=== PATIENT | female | born 1955 | race African-American/Black ===

== ENCOUNTER 2017-11-23 11:39 | Emergency (ER) | payer OTHER ==
[2017-11-23 12:22] LABS: ABS Basophils 0 10^3/ul (0-0.2); ABS Eosinophils 0.1 10^3/ul (0-0.6); ABS Lymphocytes 0.6 10^3/ul (1.0-4.8); ABS Monocytes 0.5 10^3/ul (0-0.8); ABS Neutrophils 2.1 10^3/ul (1.5-7.7); ABS Nucleated RBC 0 10^3/ul; Eosinophil % 2.2 % (0-6); Hematocrit 41 % (35-47); Hemoglobin 13.9 g/dl (12.0-16.0); Lymphocyte % 17.8 % (25-47); Mean Corpuscular HGB Conc 34 g/dl (31-36); Mean Corpuscular Hemoglobin 30 pg (27-31); Mean Corpuscular Volume 89 fL (80-97); Mean Platelet Volume 7.6 um3 (7.4-10.4); Nucleated Red Blood Cells % 0.1; Platelet Count 306 10^3/ul (150-450); Red Blood Count 4.61 10^6/ul (4.00-5.40); Red Cell Distribution Width 15 % (10.5-15); White Blood Count 3.3 10^3/ul (3.5-10.8)
[2017-11-23 12:46] LABS: EGFR Non-African American 87.7 (>60)
--- NOTE | 2017-11-23 13:25 | RAD ---
Indication: Shortness of breath. 2 views of the chest are reviewed and compared to previous exam dated November 14, 2017. Bilateral pleural effusion with bibasilar atelectasis is noted. Interstitial edema is progressive since previous exam. Left perihilar infiltrate is progressed. IMPRESSION: Increasing bilateral pleural effusions with interstitial edema suggestive of vascular congestion when compared to previous exam of November 14, 2017.
--- NOTE | 2017-11-23 14:55 | RAD ---
INDICATION: Difficulty breathing. Pancreatic carcinoma with lung metastasis. COMPARISON: November 23, 2017 chest radiograph and October 18, 2017 CT. TECHNIQUE: Multidetector CT images were obtained from the lung apices to the upper abdomen. Evaluation of the viscera is limited without IV contrast. REPORT: Moderately large dependent RIGHT and moderate dependent LEFT pleural effusions with partial loculation of the fluid bilaterally. Proportional atelectasis of both lungs. 3.1 x 2.7 cm LEFT suprahilar mass encases the bronchovascular structures to the LEFT upper lobe with significant interval worsening compared with the prior exam. Moderately severe emphysema. No enlarged mediastinal lymph nodes evident. Negative for cardiomegaly or pericardial effusion. Tip of LEFT chest port at level of RIGHT atrium. Limited images through the upper abdomen are unremarkable. No suspicious focal thoracic osseous lesions evident. IMPRESSION: #. Moderately large RIGHT and moderate LEFT partially loculated pleural effusions with interval increase on the RIGHT and decreased on the LEFT compared with the prior exam. Proportional atelectasis. #. 3.1 x 2.7 cm LEFT suprahilar mass encases the bronchovascular structures to the LEFT upper lobe with significant interval worsening compared with the prior exam is suspicious for a metastatic lesion given the clinical context.
[2017-11-23] MEDS ORDERED: oxyCODONE TAB* 5 MG TAB PO ONE (15:42)
[2017-11-23 16:05] LABS: INR 1.06 (0.77-1.02)
--- NOTE | 2017-11-23 17:21 | RAD ---
Indication: Status post right thoracentesis, right pleural effusion. Inspiration and expiration of the views of the chest are reviewed. There is a moderate-sized right pneumothorax noted. The right upper lobe and right middle lobe appears to have reexpanded. There is still persistent collapse of the right lower lobe. This may be due to central obstruction. IMPRESSION: Small to moderate right pneumothorax after thoracentesis with persistent collapse of the right.
[2017-11-23 18:27] VITALS: BP 103/78
--- NOTE | 2017-11-23 20:46 | ED ---
Pedro Daniels Angela, scribed for Omar Farrar MD on 11/23/17 at 1202 . Shortness of Breath - HPI Summary HPI Summary: This pt is a 61 y/o female presenting to [facility] via EMS for difficulty breathing and SOB. Pt reports she also has a productive cough with a great amount of sputum. She states this cough is typical and only has some pain with coughing spells. Pt denies fever, chest pain, abd pain. Pt does use oxygen at home. PMHx includes pancreatic CA (diagnosed in 2017) with metastases to the left lung. Her oncologist is Dr. Brown. Pt has had thoracentesis x3 from the left lung, her last one was 2 weeks ago performed by Dr. Andujar. She reports that her last 2 chemo sessions has caused her to build fluid in her lung and therefore has started a new treatment to avoid the fluid build up. Pt has come to the ED about 3 times in the past couple of months for SOB. - History of Current Complaint Time Seen by Provider: 11/23/17 11:46 Hx Obtained From: Patient Onset/Duration: Lasting Days, Still Present Timing: Constant Dyspnea At: Rest Aggrevating Factors: Nothing Alleviating Factors: Nothing Associated Signs & Symptoms: Cough (Productive) - Allergy/Home Medications Allergies/Adverse Reactions: Allergies Allergy/AdvReac Type Severity Reaction Status Date / Time No Known Allergies Allergy Verified 10/18/17 10:50 PMH/Surg Hx/FS Hx/Imm Hx Endocrine/Hematology History: Denies: Hx Diabetes, Hx Thyroid Disease Cardiovascular History: Reports: Hx Hypertension, Other Cardiovascular Problems/ Disorders - PRAVASTATIN Denies: Hx Pacemaker/ICD Respiratory History: Reports: Hx Lung Cancer - metastatic from pancreas , Hx Pleural Effusion, Hx Pulmonary Edema, Hx Pulmonary Embolism, Other Respiratory Problems/Disorders - HX OF THORACENTESIS 07/2017 Denies: Hx Asthma, Hx Chronic Obstructive Pulmonary Disease (COPD) GI History: Denies: Hx Ulcer History: Denies: Hx Dialysis, Hx Renal Disease Musculoskeletal History: Reports: Hx Arthritis - LOWER LUMBAR AND RIGHT KNEE, LEFT WRIST Sensory History: Denies: Hx Contacts or Glasses, Hx Legally Blind, Hx Deafness, Hx Hearing Aid Opthamlomology History: Denies: Hx Contacts or Glasses, Hx Legally Blind Neurological History: Reports: Other Neuro Impairments/Disorders - PAIN CLINIC INJECTIONS Psychiatric History: Denies: Hx Panic Disorder - Cancer History Cancer Type, Location and Year: pancreatic dx 06/2016, metastatic to lung Hx Chemotherapy: Yes - PORT ON THE LEFT Hx Radiation Therapy: No - Surgical History Surgery Procedure, Year, and Place: Left foot bunionectomy 2016 Hx Anesthesia Reactions: No Infectious Disease History: No Infectious Disease History: Denies: Hx Hepatitis, Hx Human Immunodeficiency Virus (HIV), History Other Infectious Disease, Traveled Outside the [place] in Last 30 Days - Family History Known Family History: Positive: Hypertension, Other - daughter - herniated disc - Social History Alcohol Use: None Hx Substance Use: No Substance Use Type: Reports: None Substance Use Comment - Amount & Last Used: last smoked today before "seizure" Hx Tobacco Use: No Smoking Status (MU): Former Smoker Type: Cigarettes Amount Used/How Often: 1 PACK PER WEEK Length of Time of Smoking/Using Tobacco: 44 years Have You Smoked in the Last Year: Yes Review of Systems Negative: Fever Eyes: Negative Negative: Chest Pain Positive: Shortness Of Breath, Cough Negative: Abdominal Pain Genitourinary: Negative Positive: no symptoms reported All Other Systems Reviewed And Are Negative: Yes Physical Exam - Summary Physical Exam Summary: Appearance: The patient is well-nourished in no acute distress and in no acute pain. Skin: The skin is warm and dry and skin color reflects adequate perfusion. HEENT: The head is normocephalic and atraumatic. The pupils are equal and reactive. The conjunctivae are clear and without drainage. Nares are patent and without drainage. Mouth reveals moist mucous membranes and the throat is without erythema and exudate. The external ears are intact. The ear canals are patent and without drainage. The tympanic membranes are intact. Neck: the neck is supple with full range of motion and non-tender. There are no carotid bruits. There is no neck vein distension. Respiratory: Chest is non-tender. Crackles at the left base. Decreased breath sounds on the right base, about a quarter all the way up. Cardiovascular: Heart is regular rate and rhythm. There is no murmur or rub auscultated. There is no peripheral edema and pulses are symmetrical and equal. Abdomen: The abdomen is soft and non-tender. There are normal bowel sounds heard in all four quadrants and there is no organomegaly palpated. Musculoskeletal: There is no back tenderness noted. Extremities are non-tender with full range of motion. There is good capillary refill. There is no peripheral edema or calf tenderness elicited. Neurological: Patient is alert and oriented to person, place and time. Psychiatric: The patient has an appropriate affect and does not exhibit any anxiety or depression. Triage Information Reviewed: Yes Vital Signs On Initial Exam: Initial Vitals Temp Pulse Resp BP Pulse Ox 97.1 F 91 20 143/88 100 11/23/17 11:45 11/23/17 11:45 11/23/17 11:45 11/23/17 11:45 11/23/17 11:45 Vital Signs Reviewed: Yes Diagnostics - Vital Signs Vital Signs Temp Pulse Resp BP Pulse Ox 11/23/17 11:45 97.1 F 91 20 143/88 100 - Laboratory Lab Results: Lab Results 11/23/17 11/23/17 11/23/17 Range/Units 12:06 12:06 12:06 WBC 3.3 L (3.5-10.8) 10^3/ul RBC 4.61 (4.00-5.40) 10^6/ul Hgb 13.9 (12.0-16.0) g/dl Hct 41 (35-47) % MCV 89 (80-97) fL MCH 30 (27-31) pg MCHC 34 (31-36) g/dl RDW 15 (10.5-15) % Plt Count 306 (150-450) 10^3/ul MPV 7.6 (7.4-10.4) um3 Neut % (Auto) 63.9 (38-83) % Lymph % (Auto) 17.8 L (25-47) % [place] % (Auto) 14.9 H (0-7) % Eos % (Auto) 2.2 (0-6) % Baso % (Auto) 1.2 (0-2) % Absolute Neuts (auto) 2.1 (1.5-7.7) 10^3/ul Absolute Lymphs (auto) 0.6 L (1.0-4.8) 10^3/ul Absolute Monos (auto) 0.5 (0-0.8) 10^3/ul Absolute Eos (auto) 0.1 (0-0.6) 10^3/ul Absolute Basos (auto) 0 (0-0.2) 10^3/ul Absolute Nucleated RBC 0 10^3/ul Nucleated RBC % 0.1 INR (Anticoag Therapy) (0.77-1.02) APTT (26.0-36.3) seconds Sodium 134 L (135-145) mmol/L Potassium 4.4 (3.5-5.0) mmol/L Chloride 101 (101-111) mmol/L Carbon Dioxide 27 (22-32) mmol/L Anion Gap 6 (2-11) mmol/L BUN 11 (6-24) mg/dL Creatinine 0.68 (0.51-0.95) mg/dL Est GFR ( Amer) 106.1 (>60) Est GFR (Non-Af Amer) 87.7 (>60) BUN/Creatinine Ratio 16.2 (8-20) Glucose 152 H (70-100) mg/dL Lactic Acid 1.6 (0.5-2.0) mmol/L Calcium 9.2 (8.6-10.3) mg/dL Total Bilirubin 0.40 (0.2-1.0) mg/dL AST 16 (13-39) U/L ALT 7 (7-52) U/L Alkaline Phosphatase 99 (34-104) U/L Troponin I 0.01 (<0.04) ng/mL B-Natriuretic Peptide ( - 100) pg/mL Total Protein 7.0 (6.4-8.9) g/dL Albumin 3.1 L (3.2-5.2) g/dL Globulin 3.9 (2-4) g/dL Albumin/Globulin Ratio 0.8 L (1-3) 11/23/17 11/23/17 Range/Units 12:06 12:06 WBC (3.5-10.8) 10^3/ul RBC (4.00-5.40) 10^6/ul Hgb (12.0-16.0) g/dl Hct (35-47) % MCV (80-97) fL MCH (27-31) pg MCHC (31-36) g/dl RDW (10.5-15) % Plt Count (150-450) 10^3/ul MPV (7.4-10.4) um3 Neut % (Auto) (38-83) % Lymph % (Auto) (25-47) % [place] % (Auto) (0-7) % Eos % (Auto) (0-6) % Baso % (Auto) (0-2) % Absolute Neuts (auto) (1.5-7.7) 10^3/ul Absolute Lymphs (auto) (1.0-4.8) 10^3/ul Absolute Monos (auto) (0-0.8) 10^3/ul Absolute Eos (auto) (0-0.6) 10^3/ul Absolute Basos (auto) (0-0.2) 10^3/ul Absolute Nucleated RBC 10^3/ul Nucleated RBC % INR (Anticoag Therapy) 1.06 H (0.77-1.02) APTT 28.1 (26.0-36.3) seconds Sodium (135-145) mmol/L Potassium (3.5-5.0) mmol/L Chloride (101-111) mmol/L Carbon Dioxide (22-32) mmol/L Anion Gap (2-11) mmol/L BUN (6-24) mg/dL Creatinine (0.51-0.95) mg/dL Est GFR ( Amer) (>60) Est GFR (Non-Af Amer) (>60) BUN/Creatinine Ratio (8-20) Glucose (70-100) mg/dL Lactic Acid (0.5-2.0) mmol/L Calcium (8.6-10.3) mg/dL Total Bilirubin (0.2-1.0) mg/dL AST (13-39) U/L ALT (7-52) U/L Alkaline Phosphatase (34-104) U/L Troponin I (<0.04) ng/mL B-Natriuretic Peptide 40 ( - 100) pg/mL Total Protein (6.4-8.9) g/dL Albumin (3.2-5.2) g/dL Globulin (2-4) g/dL Albumin/Globulin Ratio (1-3) Result Diagrams: 11/23/17 12:06 11/23/17 12:06 Lab Statement: Any lab studies that have been ordered have been reviewed, and results considered in the medical decision making process. - Radiology Chest XR Xray Interpretation: Positive (See Comments) - IMPRESSION: Increasing bilateral pleural effusions with interstitial edema suggestive of vascular congestion when compared to previous exam of November 14, 2017. Dr. Farrar has reviewed this radiology report. Radiology Interpretation Completed By: Radiologist Chest XR s/p right thoracentesis Xray Interpretation: Positive (See Comments) - IMPRESSION: Small to moderate right pneumothorax after thoracentesis with persistent collapse of the right. Dr. Farrar has reviewed this radiology report. Radiology Interpretation Completed By: Radiologist - CT Chest CT CT Interpretation: Positive (See Comments) - IMPRESSION: 1. Moderately large RIGHT and moderate LEFT partially loculated pleural effusions with interval increase on the RIGHT and decreased on the LEFT compared with the prior exam. Proportional atelectasis. 2. 3.1 x 2.7 cm LEFT suprahilar mass encases the bronchovascular structures to the LEFT upper lobe with significant interval worsening compared with the prior exam is suspicious for a metastatic lesion given the clinical contect. Dr. Farrar has reviewed this radiology report. CT Interpretation Completed By: Radiologist - EKG 12:10 Cardiac Rate: NL - at 87 bpm EKG Rhythm: Sinus Rhythm Course/Dx - Course Course Of Treatment: Ms. Moses presented with a complaint of gradually increasing shortness of breath over the last week or 2. She has had to have thoracentesis for left-sided pleural effusions 3 times in the past couple of months. Her pulse ox was running low on her normal 2 L of oxygen when EMS picked her up and they increased her to 4 with good results. She was nontoxic in appearance with normal vitals on arrival. She had crackles at her left base and decreased breath sounds about a quarter to a third up on the right. Chest x -ray confirmed that she had a right pleural effusion as well as some consolidation on the left therefore a CT was performed. The CT confirmed a left sided mass as well as right sided consolidated effusion. She had a thoracentesis performed by the radiology department with good subjective improvement. She was able to be decreased down to 2 L of oxygen again. She is discharged to follow up with Dr. Brown. - Diagnoses Provider Diagnoses: Pleural effusion, Pneumothorax - Physician Notifications Discussed Care of Patient With: Celso Hernandez Time Discussed With Above Provider: 14:10 Instructed by Provider To: Other - I discussed pt care with Dr. Hernandez, oncologist. Discharge - Sign-Out/Discharge Documenting (check all that apply): Discharge/Admit/Transfer - Discharge - Discharge Plan Condition: Stable Disposition: HOME Patient Education Materials: Spontaneous Pneumothorax (ED), Pleural Effusion ( ED) Referrals: Jesse Ndiaye MD [Primary Care Provider] - Additional Instructions: Please follow up with your primary care provider in 2-3 days. RETURN TO THE ED FOR ANY WORSENING SYMPTOMS. - Billing Disposition and Condition Condition: STABLE Disposition: Home The documentation as recorded by the Pedro perez Angela accurately reflects the service I personally performed and the decisions made by me, Omar Farrar MD.
--- NOTE | 2017-11-24 10:04 | RAD ---
Indication: Right pleural effusion. Real-time sonography of the right chest was performed. Large right pleural effusion is noted. Using usual aseptic technique and lidocaine as local anesthetic an 8-Vincentian catheter was placed within the right pleural space. Approximately 1650 mL of fluid was aspirated. A post procedure chest x-ray demonstrates right pneumothorax. This demonstrates nonexpansion of the right lower lobe and the possibility of a trapped right lower lobe should BE considered. IMPRESSION: Aspiration of 1650 mL of fluid from the right pleural space. Post procedure chest x-ray demonstrates moderate-sized right pneumothorax which is felt to represent trapped lung the right lower lobe failed to reexpand. Dr. Farrar was notified of the pneumothorax.
== END 2017-11-23 18:27 | disposition home or self-care (01) ==
LOC: ED 11:39
DX: J90 Pleural effusion, not elsewhere classified (principal); J93.9 Pneumothorax, unspecified; C25.9 Malignant neoplasm of pancreas, unspecified; C78.00 Secondary malignant neoplasm of unspecified lung; Z87.891 Personal history of nicotine dependence; I10 Essential (primary) hypertension; Z86.711 Personal history of pulmonary embolism
CPT/HCPCS: 32555; 36415; 71046; 71250; 80053; 83605; 83880; 84484; 85025; 85610; 85730; 93005; 99283; A9270-GY

== ENCOUNTER → 2017-12-03 09:31 | Day surgery (SDC) | payer OTHER ==
--- NOTE | 2017-12-03 10:59 | RAD ---
HISTORY: pleurX placed COMPARISONS: November 29, 2017 VIEWS: 1: frontal portable view of the chest at 10:37 AM FINDINGS: LINES AND TUBES: Left-sided chest port is noted from a subclavian approach with the tip overlying the superior vena cava. A ureteral catheter is noted on the right. CARDIOMEDIASTINAL SILHOUETTE: The cardiomediastinal silhouette is stable. PLEURA: There is a right-sided pleural catheter. There is a small right-sided hydropneumothorax, slightly decreased from November 29, 2012 examination. There is a small left pleural effusion.. LUNG PARENCHYMA: There is stable perihilar opacification correspond to masses on previous studies. There is persistent patchy alveolar opacification of the left lung base. ABDOMEN: The upper abdomen is clear. There is no subphrenic gas. BONES AND SOFT TISSUES: No bone or soft tissue abnormalities are noted. IMPRESSION: 1. LINES AND TUBES ABOVE. 2. SMALL RIGHT-SIDED HYDROPNEUMOTHORAX, SLIGHTLY DECREASED FROM THE PREVIOUS EXAMINATION. 3. SMALL LEFT PLEURAL EFFUSION. 4. PERSISTENT AIRSPACE DISEASE OF THE LEFT LUNG BASE
--- NOTE | 2017-12-04 06:27 | OP ---
CC: Dr. Brown * DATE OF OPERATION: 12/03/17 - SDS DATE OF : 53 SURGEON: Perez Madden MD FINANCIAL OPERATIONS CLERK: None. ANESTHESIOLOGIST: None. PRE-OP DIAGNOSIS: Malignant pleural effusion. POST-OP DIAGNOSIS: Malignant pleural effusion. OPERATIVE PROCEDURE: Placement of right PleurX catheter. DESCRIPTION OF PROCEDURE: The patient was in the local outpatient department. A little roll was placed under the right side to tilt her upward and then the right chest was prepped with antiseptic, draped in a sterile fashion. Local infiltrative anesthesia was administered and the posterior axillary line, approximately the 8th interspace was accessed with local anesthetic, and a skinny needle was used to identify clear fluid. An access needle and then a guidewire was placed. The catheter was measured out on the exit site as planned for about 15 cm anterior and inferior to this area and local anesthetic was administered along the tract and incision was created and the catheter was tunneled through this tract and the Peel- Away introducer was placed over the guidewire and the catheter was passed through the Peel-Way introducer, delivered into the chest and the catheter was then appropriately positioned and sutured at the exit site using 3-0 Vicryl, and the skin incision posteriorly was also closed with 3-0 Vicryl. A gauze bandage was placed over the posterior incision and the sterile Tegaderm dressing was placed over the catheter after drainage about 1200 mL of fluid. She tolerated this with the usual cough and is discharged with instruction. She is going to follow up with Dr. Brown's office for teaching of the PleurX catheter , and I will be happy to see her back in the office should the need arise. [id number]/[facility] #: [id number] [facility]
== END | disposition home or self-care (01) ==
LOC: OR 09:31
PROVIDERS: ATTEND Surgery
DX: J91.0 Malignant pleural effusion (principal); C25.0 Malignant neoplasm of head of pancreas; R53.83 Other fatigue; R06.02 Shortness of breath; R63.4 Abnormal weight loss; Z72.0 Tobacco use; I10 Essential (primary) hypertension; R73.01 Impaired fasting glucose; E78.2 Mixed hyperlipidemia
CPT/HCPCS: 32551; 71045

== ENCOUNTER 2018-01-10 18:03 | Observation (INO) | payer OTHER ==
--- OUTSIDE RECORDS SUMMARY | 2018-01-10 18:41 | XMS REPORT ---
:1955 External Reference #:[id number] Author Organization [email or web address] Address [address] [facility] [place] [address] [place] [address] Phone [phone] Care Team Providers Name Role Phone Jesse Ndiaye MD Care Team Information Microstrategy Reports Developer Unavailable Jesse Ndiaye MD Primary Care Physician Unavailable Payers Type Date Identification Numbers Payment Provider Subscriber Commercial Effective: Policy Number: [id number] [employer] May Velázquez 2005 Medicaid Expires: 2008 PayID: [id number] [address] [address] [place] [address] Medigap Part B Effective: Policy Number: [employer] May Velázquez 2008 [id number] Expires: 2011 Group Number: [id number] [address] PayID: [id number] MONIQUE Negro [id number] Commercial Effective: 2011 Policy Number: [id number] [employer] May Velázquez Group Number: [id number] [address] PayID: [id number] MONIQUE Negro [id number] Problems Date Description Provider Status Onset: 09/06/2016 Primary malignant neoplasm of Jesse Ndiaye, Active pancreas Federica,FACP Onset: 06/04/2007 Disorder of lumbar disc Gaby Hardwick M.D.,FACP Onset: 06/04/2007 Neuralgia Neuritis & Radiculitis Jesse Ndiaye, Active Unspec Federica,FACP Onset: 02/25/2008 Mixed hyperlipidemia Gaby Hardwick M.D.,FACP Onset: 04/01/2010 Female climacteric state Gaby Hardwick M.D.,FACP Onset: 12/04/2016 Ex-smoker Jesse Ndiaye Active Federica,FACP Onset: 11/04/2017 Pulmonary embolism Becky Erickson DO Active Onset: 11/04/2017 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 Onset: 11/04/2017 Pleural effusion, not elsewhere Becky Erickson DO Active classified Onset: 02/25/2008 Tobacco user Jesse Ndiaye Inactive Federica,FACP Inactive: 12/04/2016 Onset: 01/01/2015 Body mass index 30+ - obesity Jesse Ndiaye M.D.,FACP Resolved Resolved: 08/11/2016 Onset: 02/25/2008 Impaired fasting glycaemia Jesse Ndiaye M.D.,FACP Resolved Resolved: 02/19/2017 Onset: 01/01/2015 Benign essential hypertension Jesse Ndiaye M.D.,FACP Resolved Resolved: 02/19/2017 Family History Date Family Member(s) Problem(s) Comments General Breast Cancer General Lung Cancer Father due to Pneumonia () Father Diabetes, Non Insulin Dependent Mother Diabetes, Non Insulin Dependent Mother due to Emphysema () Siblings 11 : (age 3 First Brother due to Accidental Years) : (1995) Second Brother due to AIDS Third Brother Alive And Well Fourth Brother Alive And Well First Sister Diabetes, Non Insulin Dependent First Sister due to Cancer, () Breast Second Sister Diabetes, Non Insulin Dependent Second Sister Obesity w/ lap-band surgery Third Sister Diabetes, Non Insulin Dependent Social History Type Date Description Comments Marital Status in 1989 Lives With 02/19/2017 Alone Occupation 02/19/2017 Currently Working at [employer], [employer], 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 Cigarette Use Former Cigarette Smoker ETOH Use 02/19/2017 Denies alcohol use Recreational Drug Use Denies Drug Use Smoking Patient is a former smoker Smoking 06/30/2016 quit 12/2014 General Hx Text 3 children Allergies, Adverse Reactions, Alerts Date Description Reaction Status Severity Comments 05/23/2007 NKDA active Medications Medication Date Status Form Strength Qnty SIG Indications Ordering Provider Oxycodone HCL Active Tablets 10mg 45tab 1 by mouth Unknown / s every 4 hours as needed pain, MDD 6 Maalox Active Suspension 400-400-4 30 Unknown Advanced 0mg/5ML milliliters Maximum every 6 hours Strength as needed indigestion, use with lidocaine viscous Lovenox Active Solution 100mg/ml 1 Unknown subcutaneousl y every day Levaquin 11/23 Hx Tablets 750mg 12tab 1 tab by Other s mouth daily Ordering - for 12 days Provider 12/04 Tessalon 11/23 Hx Capsules 100mg 60cap 2 tab by Other s mouth three Ordering - times a day Provider 02/19 as needed /2016 cough Miralax 08/11 Hx Powder [id number] 510un 17 gm every its day mixed w/ Carmen Ndiaye, 8 oz Jania.Carmen,FACP water/juice Morphine 07/26 Hx Tablets ER 15mg 60tab 1 by mouth q Gregg Sulfate ER /2016 s 12 hrs Krystian Brown M.D. 12/04 Colace 06/30 Hx Capsules 100mg 60cap 1 by mouth s twice a day Carmen Ndiaye M.D.,FACP Oxycodone HCL 06/30 Hx Tablets 10mg 60tab 1/2-1 by s mouth every 6 D. Zelda, estephanie do M.D.,FACP needed pain Movantik 06/30 Hx Tablets 25mg 30tab 1 by mouth s every day Carmen Ndiaye, - (not taking) Federica,FACP 08/11 Medrol 06/14 Hx Tablets 4mg 1pak medrol dosepack as Carmen Ndiaye, - directed Federica,FACP 06/20 Metaxalone 06/14 Hx Tablets 800mg 30tab 1/2 -1 by s mouth three Carmen Ndiaye, times a day Federica,FACP as needed No Active 06/07 Hx Unknown Medications /2016 - 06/07 Lyrica 06/07 Hx Capsules 75mg 60cap 1 by mouth 3X [facility] s a day for 1 D. Zelda, - wk then 2 M.D.,[facility] 06/30 tabs twice a day Hydrocodone-Ac 06/07 Hx Tablets 5-325mg 30tab 1 by mouth Jesse etamin s every 4-6 D. Zelad, - hours prn. M.DKvng,[facility] 06/14 Azithromycin 03/28 Hx Tablets 250mg 6tabs two tabs day one, one Ordering - daily till Provider 04/02 Voltaren 03/19 Hx Gel 1% 100g apply 2 gms M25.532 Jesse to affected Carmen Ndiaye, - area twice a M.DKvng,[facility] 06/07 day as needed (Work Comp) left wrist Lisinopril 01/01 Hx Tablets 10mg 90tab 1 by mouth I10 Jesse s every day Krystian Sutherland M.D.,[facility] 06/07 Bupropion HCL 10/01 Hx Tablets ER 150mg 21tab 1 tab qd for F17.210 Thierno Paredes ER (SR) /2014 12HR s 3 wks, then Carmen Ndiaye, - stop M.Carmen,[facility] 07/05 Pravastatin 10/01 Hx Tablets 20mg 30tab 1 tablet by E78.2 Jesse Sodium s mouth once Carmen Ndiaye, - daily at M.D.,[facility] 06/07 bedtime No Active 04/01 Hx Unknown Medications /2013 - 10/01 Chantix 06/10 Hx Tablets 1mg 60tab 1 po bid 305.1 Jesse s Krystian Sutherland M.D.,[facility] 04/01 Biaxin 02/24 Hx Tablets 500mg 14tab 1 bid po for 466.0 Jesse s 7 days Krystian Sutherland M.D.,[facility] 06/10 Proventil HFA 02/24 Hx Aerosol 108mcg/Ac 1Mon 2 puff(S) 466.0 Jesse t inhalation 1 Carmen Ndiaye, - qid prn M.Carmen,[facility] 04/01 Chantix 02/24 Hx Misc Starting 1Mon as directed 305.1 Krystian Dunaway M.D.,[facility] 06/10 Lyrica 06/04 Hx Capsules 75mg 60cap 1 po bid 729.2 Krystian Tellez M.D.,[facility] 02/24 Ibuprofen 05/23 Hx Tablets 600mg 90tab 1 PO tid prn Jesse Krystian Tellez M.D.,[facility] 02/24 Percocet 05/23 Hx Tablets 7.5-325M 80tab 1-2 po qid 720.2 Jesse Krystian Gomez M.D.,[facility] 02/24 Meloxicam Hx Tablets 7.5mg take 1 tab by Unknown /0000 mouth bid - 06/07 Senna Hx Tablets 8.6mg take 1-2 Unknown /0000 tablets by mouth at bedtime for constipation Gemzar Hx Solution 200mg IV weekly Unknown /0000 Rec - 12/04 Abraxane 00 Hx Suspension 100mg IV weekly Unknown /0000 Rec Gemcitabine 00 Hx Solution 1GM/26.3M Unknown HCL /0000 L Acetaminophen Hx Tablets ER 650mg 1 tab by Unknown ER /0000 mouth q4 hours as needed pain Temazepam 00 Hx Capsules 15mg 1 tablet at Unknown /0000 bedtime mdd 1 Immunizations CPT Code Status Date Vaccine Lot # [id number] Given 04/01/2010 Influenza Virus 3Yrs & Over Vital Signs Date Vital Result Comment 12/28/2017 Heart Rate 80 /min Respiratory Rate 18 /min Body Temperature 98.0 F 11/30/2017 Height 66 inches 5'6" Weight 130.00 lb Heart Rate 80 /min BP Systolic 130 mmHg BP Diastolic 80 mmHg Respiratory Rate 22 /min Body Temperature 97.8 F BMI (Body Mass Index) 21.0 kg/m2 06/05/2017 Height 66 inches 5'6" Weight 154.00 lb Heart Rate 72 /min BP Systolic 160 mmHg BP Diastolic 88 mmHg Respiratory Rate 18 /min Body Temperature 97.8 F BMI (Body Mass Index) 24.9 kg/m2 02/19/2017 Height 66 inches 5'6" Weight 147.38 lb Heart Rate 78 /min BP Systolic Sitting 130 mmHg BP Diastolic Sitting 72 mmHg Body Temperature 97.8 F O2 % BldC Oximetry 98 % BMI (Body Mass Index) 23.8 kg/m2 12/04/2016 Weight 156.12 lb Heart Rate 52 /min BP Systolic Sitting 140 mmHg BP Diastolic Sitting 64 mmHg Body Temperature 96.4 F O2 % BldC Oximetry 98 % 08/11/2016 Weight 155.50 lb Heart Rate 93 /min BP Systolic Sitting 131 mmHg BP Diastolic Sitting 75 mmHg Body Temperature 97.3 F 08/07/2016 Height 65 inches 5'5" Weight 150.00 lb Heart Rate 54 /min BP Systolic 144 mmHg BP Diastolic 82 mmHg Respiratory Rate 16 /min Body Temperature 97.7 F BMI (Body Mass Index) 25.0 kg/m2 07/11/2016 Weight 169.00 lb Heart Rate 66 /min BP Systolic Sitting 122 mmHg BP Diastolic Sitting 70 mmHg Body Temperature 97.8 F O2 % BldC Oximetry 99 % 06/30/2016 Weight 173.25 lb Heart Rate 74 /min BP Systolic Sitting 152 mmHg BP Diastolic Sitting 74 mmHg Body Temperature 97.3 F O2 % BldC Oximetry 98 % 06/14/2016 Height 63.75 inches 5'3.75" Weight 179.50 lb Heart Rate 68 /min BP Systolic Sitting 150 mmHg BP Diastolic Sitting 72 mmHg O2 % BldC Oximetry 97 % BMI (Body Mass Index) 31.0 kg/m2 06/07/2016 Weight 175.38 lb Heart Rate 82 /min BP Systolic Sitting 140 mmHg BP Diastolic Sitting 82 mmHg Body Temperature 96.8 F O2 % BldC Oximetry 98 % 10/13/2015 Height 63.75 inches 5'3.75" Weight 203.00 lb Heart Rate 60 /min BP Systolic Sitting 156 mmHg BP Diastolic Sitting 80 mmHg Body Temperature 97.1 F O2 % BldC Oximetry 97 % BMI (Body Mass Index) 35.1 kg/m2 06/14/2015 Weight 203.00 lb Heart Rate 70 /min BP Systolic Sitting 154 mmHg BP Diastolic Sitting 82 mmHg Body Temperature 97.5 F O2 % BldC Oximetry 98 % 03/19/2015 Weight 208.00 lb Heart Rate 61 /min BP Systolic Sitting 126 mmHg BP Diastolic Sitting 64 mmHg Body Temperature 97.2 F O2 % BldC Oximetry 98 % 01/01/2015 Weight 204.00 lb Heart Rate 60 /min BP Systolic Sitting 148 mmHg BP Diastolic Sitting 82 mmHg Body Temperature 98.2 F 10/01/2014 Height 65.75 inches 5'5.75" Weight 206.25 lb Heart Rate 77 /min BP Systolic Sitting 144 mmHg BP Diastolic Sitting 80 mmHg Body Temperature 97.6 F O2 % BldC Oximetry 97 % BMI (Body Mass Index) 33.5 kg/m2 04/01/2014 Height 65.75 inches 5'5.75" Weight 212.50 lb Heart Rate 57 /min BP Systolic Sitting 135 mmHg BP Diastolic Sitting 80 mmHg Body Temperature 97.5 F BMI (Body Mass Index) 34.6 kg/m2 04/01/2010 Height 66 inches 5'6" Weight 223.00 lb Heart Rate 64 /min BP Systolic Sitting 146 mmHg BP Diastolic Sitting 72 mmHg BMI (Body Mass Index) 36.0 kg/m2 06/10/2008 Height 66 inches 5'6" Weight 226.00 lb Heart Rate 64 /min BP Systolic Sitting 138 mmHg BP Diastolic Sitting 76 mmHg BMI (Body Mass Index) 36.5 kg/m2 02/25/2008 Height 66 inches 5'6" Weight 223.00 lb Heart Rate 60 /min BP Systolic Sitting 130 mmHg BP Diastolic Sitting 70 mmHg BMI (Body Mass Index) 36.0 kg/m2 06/04/2007 Height 67 inches 5'7" Weight 230.00 lb Heart Rate 78 /min BP Systolic Sitting 160 mmHg BP Diastolic Sitting 89 mmHg BMI (Body Mass Index) 36.0 kg/m2 05/23/2007 Height 67 inches 5'7" Weight 230.00 lb Heart Rate 78 /min BP Systolic Sitting 150 mmHg BP Diastolic Sitting 80 mmHg BMI (Body Mass Index) 36.0 kg/m2 Results Test Date Test Result H/L Range Note Laboratory test finding 12/13/2017 Heparin Anti Factor <0.10 IU/mL 1 Xa Laboratory test finding 11/23/2017 Troponin-I (TnI) 0.01 ng/mL <0.04 Comp Metabolic Panel 11/23/2017 Sodium 134 mmol/L Low 135-145 Potassium 4.4 mmol/L 3.5-5.0 Chloride 101 mmol/L 101-111 Co2 Carbon Dioxide 27 mmol/L 22-32 Anion Gap 6 mmol/L 2-11 Glucose 152 mg/dL High 70-100 Blood Urea Nitrogen 11 mg/dL 6-24 Creatinine 0.68 mg/dL 0.51-0.95 BUN/Creatinine Ratio 16.2 8-20 Calcium 9.2 mg/dL 8.6-10.3 Total Protein 7.0 g/dL 6.4-8.9 Albumin 3.1 g/dL Low 3.2-5.2 Globulin 3.9 g/dL 2-4 Albumin/Globulin Ratio 0.8 Low 1-3 Total Bilirubin 0.40 mg/dL 0.2-1.0 Alkaline Phosphatase 99 U/L 34-104 Alt 7 U/L 7-52 Ast 16 U/L 13-39 Egfr Non- 87.7 >60 Egfr 106.1 >60 2 CBC Auto Diff 11/23/2017 White Blood Count 3.3 10^3/uL Low 3.5-10.8 Red Blood Count 4.61 10^6/uL 4.00-5.40 Hemoglobin 13.9 g/dL 12.0-16.0 Hematocrit 41 % 35-47 Mean Corpuscular Volume 89 fL 80-97 Mean Corpuscular Hemoglobin 30 pg 27-31 Mean Corpuscular HGB Conc 34 g/dL 31-36 Red Cell Distribution Width 15 % 10.5-15 Platelet Count 306 10^3/uL 150-450 Mean Platelet Volume 7.6 um3 7.4-10.4 Abs Neutrophils 2.1 10^3/uL 1.5-7.7 Abs Lymphocytes 0.6 10^3/uL Low 1.0-4.8 Abs Monocytes 0.5 10^3/uL 0-0.8 Abs Eosinophils 0.1 10^3/uL 0-0.6 Abs Basophils 0 10^3/uL 0-0.2 Abs Nucleated RBC 0 10^3/uL Granulocyte % 63.9 % 38-83 Lymphocyte % 17.8 % Low 25-47 Monocyte % 14.9 % High 0-7 Eosinophil % 2.2 % 0-6 Basophil % 1.2 % 0-2 Nucleated Red Blood Cells % 0.1 Laboratory test finding 11/23/2017 Lactic Acid 1.6 mmol/L 0.5-2.0 3 B-Type Natriuretic Peptide BNP 40 pg/mL 4 Inr/Protime 11/23/2017 Inr 1.06 High 0.77-1.02 Laboratory test 11/23/2017 Partial Thrombo Time 28.1 seconds 26.0-36.3 finding PTT Laboratory test 11/04/2017 B-Type Natriuretic 34 pg/mL 5 finding Peptide BNP Blood Culture SEE RESULT BELOW 6 CKMB 11/04/2017 CKMB ng/mL 3.7 ng/mL 0.6-6.3 Laboratory test finding 11/04/2017 Creatine Kinase(CK) 41 U/L 10-223 C Reactive Protein 17.88 mg/L High < 5.00 7 Troponin-I (TnI) 0.01 ng/mL <0.04 Comp Metabolic Panel 11/04/2017 Sodium 135 mmol/L Low 139-145 Potassium 3.8 mmol/L 3.5-5.0 Chloride 100 mmol/L Low 101-111 Co2 Carbon Dioxide 26 mmol/L 22-32 Anion Gap 9 mmol/L 2-11 Glucose 127 mg/dL High 70-100 Blood Urea Nitrogen 12 mg/dL 6-24 Creatinine 0.78 mg/dL 0.51-0.95 BUN/Creatinine Ratio 15.4 8-20 Calcium 8.9 mg/dL 8.6-10.3 Total Protein 7.1 g/dL 6.4-8.9 Albumin 3.3 g/dL 3.2-5.2 Globulin 3.8 g/dL 2-4 Albumin/Globulin Ratio 0.9 Low 1-3 Total Bilirubin 0.50 mg/dL 0.2-1.0 Alkaline Phosphatase 89 U/L 34-104 Alt 7 U/L 7-52 Ast 16 U/L 13-39 Egfr Non- 74.8 >60 Egfr 96.2 >60 8 Laboratory test finding 11/04/2017 Partial Thrombo Time 40.8 seconds High 26.0-36.3 PTT Lactic Acid 2.2 mmol/L High 0.5-2.0 9 Inr/Protime 11/04/2017 Inr 3.46 High 0.77-1.02 CBC Auto Diff 11/04/2017 White Blood Count 5.0 10^3/uL 3.5-10.8 Red Blood Count 4.91 10^6/uL 4.0-5.4 Hemoglobin 15.3 g/dL 12.0-16.0 Hematocrit 45 % 35-47 Mean Corpuscular Volume 92 fL 80-97 Mean Corpuscular Hemoglobin 31 pg 27-31 Mean Corpuscular HGB Conc 34 g/dL 31-36 Red Cell Distribution Width 15 % 10.5-15 Platelet Count 291 10^3/uL 150-450 Mean Platelet Volume 8.0 um3 7.4-10.4 Abs Neutrophils 3.5 10^3/uL 1.5-7.7 Abs Lymphocytes 1.0 10^3/uL 1.0-4.8 Abs Monocytes 0.3 10^3/uL 0-0.8 Abs Eosinophils 0.2 10^3/uL 0-0.6 Abs Basophils 0.1 10^3/uL 0-0.2 Abs Nucleated RBC 0 10^3/uL Granulocyte % 70.3 % 38-83 Lymphocyte % 19.4 % Low 25-47 Monocyte % 5.8 % 0-7 Eosinophil % 3.4 % 0-6 Basophil % 1.1 % 0-2 Nucleated Red Blood Cells % 0.2 Inr/Protime 10/30/2017 Inr 2.04 High 0.77-1.02 Laboratory test finding 10/23/2017 CA 19-9 50426 U/mL <35 10 Comp Metabolic Panel 10/23/2017 Sodium 137 mmol/L Low 139-145 Potassium 4.1 mmol/L 3.5-5.0 Chloride 102 mmol/L 101-111 Co2 Carbon Dioxide 26 mmol/L 22-32 Anion Gap 9 mmol/L 2-11 Glucose 129 mg/dL High 70-100 Blood Urea Nitrogen 9 mg/dL 6-24 Creatinine 0.76 mg/dL 0.51-0.95 BUN/Creatinine Ratio 11.8 8-20 Calcium 9.7 mg/dL 8.6-10.3 Total Protein 8.0 g/dL 6.4-8.9 Albumin 3.8 g/dL 3.2-5.2 Globulin 4.2 g/dL High 2-4 Albumin/Globulin Ratio 0.9 Low 1-3 Total Bilirubin 0.70 mg/dL 0.2-1.0 Alkaline Phosphatase 105 U/L High 34-104 Alt 6 U/L Low 7-52 Ast 16 U/L 13-39 Egfr Non- 77.1 >60 Egfr 99.2 >60 11 Inr/Protime 10/23/2017 Inr 1.10 High 0.77-1.02 CBC Auto Diff 10/23/2017 White Blood Count 4.9 10^3/uL 3.5-10.8 Red Blood Count 5.18 10^6/uL 4.0-5.4 Hemoglobin 15.9 g/dL 12.0-16.0 Hematocrit 48 % High 35-47 Mean Corpuscular Volume 92 fL 80-97 Mean Corpuscular Hemoglobin 31 pg 27-31 Mean Corpuscular HGB Conc 33 g/dL 31-36 Red Cell Distribution Width 16 % High 10.5-15 Platelet Count 274 10^3/uL 150-450 Mean Platelet Volume 7.6 um3 7.4-10.4 Abs Neutrophils 3.5 10^3/uL 1.5-7.7 Abs Lymphocytes 0.8 10^3/uL Low 1.0-4.8 Abs Monocytes 0.4 10^3/uL 0-0.8 Abs Eosinophils 0.1 10^3/uL 0-0.6 Abs Basophils 0.1 10^3/uL 0-0.2 Abs Nucleated RBC 0 10^3/uL Granulocyte % 72.0 % 38-83 Lymphocyte % 17.1 % Low 25-47 Monocyte % 8.4 % High 0-7 Eosinophil % 1.3 % 0-6 Basophil % 1.2 % 0-2 Nucleated Red Blood Cells % 0.1 Inr/Protime 10/19/2017 Inr 2.02 High 0.77-1.02 CBC Auto Diff 08/27/2017 White Blood Count 3.2 10^3/uL Low 3.5-10.8 Red Blood Count 4.08 10^6/uL 4.0-5.4 Hemoglobin 12.7 g/dL 12.0-16.0 Hematocrit 38 % 35-47 Mean Corpuscular Volume 93 fL 80-97 Mean Corpuscular Hemoglobin 31 pg 27-31 Mean Corpuscular HGB Conc 33 g/dL 31-36 Red Cell Distribution Width 18 % High 10.5-15 Platelet Count 244 10^3/uL 150-450 Mean Platelet Volume 8.0 um3 7.4-10.4 Abs Neutrophils 1.3 10^3/uL Low 1.5-7.7 Abs Lymphocytes 1.2 10^3/uL 1.0-4.8 Abs Monocytes 0.4 10^3/uL 0-0.8 Abs Eosinophils 0.2 10^3/uL 0-0.6 Abs Basophils 0 10^3/uL 0-0.2 Abs Nucleated RBC 0 10^3/uL Granulocyte % 42.0 % 38-83 Lymphocyte % 38.5 % 25-47 Monocyte % 13.0 % High 0-7 Eosinophil % 5.0 % 0-6 Basophil % 1.5 % 0-2 Nucleated Red Blood Cells % 0.1 Comp Metabolic Panel 08/27/2017 Sodium 137 mmol/L Low 139-145 Potassium 3.9 mmol/L 3.5-5.0 Chloride 107 mmol/L 101-111 Co2 Carbon Dioxide 25 mmol/L 22-32 Anion Gap 5 mmol/L 2-11 Glucose 103 mg/dL High 70-100 Blood Urea Nitrogen 5 mg/dL Low 6-24 Creatinine 0.72 mg/dL 0.51-0.95 BUN/Creatinine Ratio 6.9 Low 8-20 Calcium 9.0 mg/dL 8.6-10.3 Total Protein 6.9 g/dL 6.4-8.9 Albumin 3.5 g/dL 3.2-5.2 Globulin 3.4 g/dL 2-4 Albumin/Globulin Ratio 1.0 1-3 Total Bilirubin 0.40 mg/dL 0.2-1.0 Alkaline Phosphatase 85 U/L 34-104 Alt 6 U/L Low 7-52 Ast 15 U/L 13-39 Egfr Non- 82.1 >60 Egfr 105.6 >60 12 Laboratory test finding 08/27/2017 CA 19-9 1378 U/mL <35 13 CBC Auto Diff 07/18/2017 White Blood Count 2.8 10^3/uL Low 3.5-10.8 Red Blood Count 3.69 10^6/uL Low 4.0-5.4 Hemoglobin 11.8 g/dL Low 12.0-16.0 Hematocrit 35 % 35-47 Mean Corpuscular Volume 94 fL 80-97 Mean Corpuscular Hemoglobin 32 pg High 27-31 Mean Corpuscular HGB Conc 34 g/dL 31-36 Red Cell Distribution Width 16 % High 10.5-15 Platelet Count 256 10^3/uL 150-450 Mean Platelet Volume 9 um3 7.4-10.4 Abs Neutrophils 1.0 10^3/uL Low 1.5-7.7 Abs Lymphocytes 1.2 10^3/uL 1.0-4.8 Abs Monocytes 0.4 10^3/uL 0-0.8 Abs Eosinophils 0.1 10^3/uL 0-0.6 Abs Basophils 0 10^3/uL 0-0.2 Abs Nucleated RBC 0 10^3/uL Granulocyte % 36.0 % Low 38-83 Lymphocyte % 43.3 % 25-47 Monocyte % 15.3 % High 1-9 Eosinophil % 4.0 % 0-6 Basophil % 1.4 % 0-2 Nucleated Red Blood Cells % 0.4 Inr/Protime 07/18/2017 Inr 1.61 High 0.77-1.02 Comp Metabolic Panel 07/18/2017 Sodium 136 mmol/L 133-145 Potassium 3.6 mmol/L 3.5-5.0 Chloride 108 mmol/L 101-111 Co2 Carbon Dioxide 24 mmol/L 22-32 Anion Gap 4 mmol/L 2-11 Glucose 135 mg/dL High 70-100 Blood Urea Nitrogen 7 mg/dL 6-24 Creatinine 0.80 mg/dL 0.51-0.95 BUN/Creatinine Ratio 8.8 8-20 Calcium 8.9 mg/dL 8.6-10.3 Total Protein 6.4 g/dL 6.4-8.9 Albumin 3.1 g/dL Low 3.2-5.2 Globulin 3.3 g/dL 2-4 Albumin/Globulin Ratio 0.9 Low 1-3 Total Bilirubin 0.40 mg/dL 0.2-1.0 Alkaline Phosphatase 76 U/L 34-104 Alt 6 U/L Low 7-52 Ast 13 U/L 13-39 Egfr Non- 72.7 >60 Egfr 93.5 >60 14 Laboratory test finding 07/18/2017 CA 19-9 995 U/mL <35 15 Inr/Protime 07/10/2017 Inr 1.63 High 0.77-1.02 CBC Auto Diff 06/06/2017 White Blood Count 4.3 10^3/uL 3.5-10.8 Red Blood Count 4.10 10^6/uL 4.0-5.4 Hemoglobin 13.7 g/dL 12.0-16.0 Hematocrit 41 % 35-47 Mean Corpuscular Volume 101 fL High 80-97 Mean Corpuscular Hemoglobin 33 pg High 27-31 Mean Corpuscular HGB Conc 33 g/dL 31-36 Red Cell Distribution Width 17 % High 10.5-15 Platelet Count 195 10^3/uL 150-450 Mean Platelet Volume 9 um3 7.4-10.4 Abs Neutrophils 2.1 10^3/uL 1.5-7.7 Abs Lymphocytes 1.2 10^3/uL 1.0-4.8 Abs Monocytes 0.7 10^3/uL 0-0.8 Abs Eosinophils 0.2 10^3/uL 0-0.6 Abs Basophils 0 10^3/uL 0-0.2 Abs Nucleated RBC 0 10^3/uL Granulocyte % 49.7 % 38-83 Lymphocyte % 28.0 % 25-47 Monocyte % 17.2 % High 1-9 Eosinophil % 4.2 % 0-6 Basophil % 0.9 % 0-2 Nucleated Red Blood Cells % 0 Comp Metabolic Panel 06/06/2017 Sodium 134 mmol/L 133-145 Potassium 3.9 mmol/L 3.5-5.0 Chloride 103 mmol/L 101-111 Co2 Carbon Dioxide 22 mmol/L 22-32 Anion Gap 9 mmol/L 2-11 Glucose 124 mg/dL High 70-100 Blood Urea Nitrogen 10 mg/dL 6-24 Creatinine 0.83 mg/dL 0.51-0.95 BUN/Creatinine Ratio 12.0 8-20 Calcium 9.2 mg/dL 8.6-10.3 Total Protein 7.0 g/dL 6.4-8.9 Albumin 3.5 g/dL 3.2-5.2 Globulin 3.5 g/dL 2-4 Albumin/Globulin Ratio 1.0 1-3 Total Bilirubin 0.60 mg/dL 0.2-1.0 Alkaline Phosphatase 89 U/L 34-104 Alt 8 U/L 7-52 Ast 20 U/L 13-39 Egfr Non- 69.7 >60 Egfr 89.6 >60 16 Laboratory test finding 06/06/2017 CA 19-9 748 U/mL <35 17 Body Fluid Albumin 06/05/2017 Albumin Level Body Fluid 2200 mg/dL 18 Fluid Source L Pleural Laboratory test finding 06/05/2017 Cytology Non-Electronic Maintenance Supervisor SEE RESULT BELOW 19 Body Fluid Total Protein 06/05/2017 Total Protein, BF 4.6 g/dL 20 Fluid Source LEFT PLEURAL FL 21 Lactate Dehydrogenase,BF 06/05/2017 Lactate Dehydrogenase, BF 227 U/L 22 Fluid Source LEFT PLEURAL FL 23 Comp Metabolic Panel 05/27/2017 Sodium 132 mmol/L Low 133-145 Potassium 4.0 mmol/L 3.5-5.0 Chloride 103 mmol/L 101-111 Co2 Carbon Dioxide 23 mmol/L 22-32 Anion Gap 6 mmol/L 2-11 Glucose 106 mg/dL High 70-100 Blood Urea Nitrogen 10 mg/dL 6-24 Creatinine 0.79 mg/dL 0.51-0.95 BUN/Creatinine Ratio 12.7 8-20 Calcium 8.5 mg/dL Low 8.6-10.3 Total Protein 6.9 g/dL 6.4-8.9 Albumin 3.2 g/dL 3.2-5.2 Globulin 3.7 g/dL 2-4 Albumin/Globulin Ratio 0.9 Low 1-3 Total Bilirubin 0.80 mg/dL 0.2-1.0 Alkaline Phosphatase 83 U/L 34-104 Alt 10 U/L 7-52 Ast 25 U/L 13-39 Egfr Non- 73.7 >60 Egfr 94.8 >60 24 Laboratory test finding 05/27/2017 Troponin-I (TnI) 0.01 ng/mL <0.04 CBC Auto Diff 05/27/2017 White Blood Count 3.6 10^3/uL 3.5-10.8 Red Blood Count 3.45 10^6/uL Low 4.0-5.4 Hemoglobin 11.6 g/dL Low 12.0-16.0 Hematocrit 34 % Low 35-47 Mean Corpuscular Volume 99 fL High 80-97 Mean Corpuscular Hemoglobin 34 pg High 27-31 Mean Corpuscular HGB Conc 34 g/dL 31-36 Red Cell Distribution Width 16 % High 10.5-15 Platelet Count 318 10^3/uL 150-450 Mean Platelet Volume 9 um3 7.4-10.4 Abs Neutrophils 2.7 10^3/uL 1.5-7.7 Abs Lymphocytes 0.7 10^3/uL Low 1.0-4.8 Abs Monocytes 0.1 10^3/uL 0-0.8 Abs Eosinophils 0.1 10^3/uL 0-0.6 Abs Basophils 0.1 10^3/uL 0-0.2 Abs Nucleated RBC 0 10^3/uL Granulocyte % 74.1 % 38-83 Lymphocyte % 18.1 % Low 25-47 Monocyte % 4.0 % 1-9 Eosinophil % 2.2 % 0-6 Basophil % 1.6 % 0-2 Nucleated Red Blood Cells % 0 Laboratory test finding 05/27/2017 B-Type Natriuretic 59 pg/mL 25 Peptide BNP Laboratory test finding 05/10/2017 CA 19-9 458 U/mL <35 26 CBC Auto Diff 04/11/2017 White Blood Count 3.0 10^3/uL Low 3.5-10.8 27 Red Blood Count 3.36 10^6/uL Low 4.0-5.4 Hemoglobin 11.1 g/dL Low 12.0-16.0 Hematocrit 33 % Low 35-47 Mean Corpuscular Volume 97 fL 80-97 Mean Corpuscular Hemoglobin 33 pg High 27-31 Mean Corpuscular HGB Conc 34 g/dL 31-36 Red Cell Distribution Width 21 % High 10.5-15 Platelet Count 134 10^3/uL Low 150-450 Mean Platelet Volume 8 um3 7.4-10.4 Abs Neutrophils 1.1 10^3/uL Low 1.5-7.7 Abs Lymphocytes 1.0 10^3/uL 1.0-4.8 Abs Monocytes 0.8 10^3/uL 0-0.8 Abs Eosinophils 0.1 10^3/uL 0-0.6 Abs Basophils 0 10^3/uL 0-0.2 Abs Nucleated RBC 0.01 10^3/uL Granulocyte % 35.0 % Low 38-83 Lymphocyte % 34.4 % 25-47 Monocyte % 25.1 % High 1-9 Eosinophil % 4.3 % 0-6 Basophil % 1.2 % 0-2 Nucleated Red Blood Cells % 0.2 Laboratory test 04/04/2017 B-Type Natriuretic 101 pg/mL High 28 finding Peptide BNP CBC Auto Diff 04/04/2017 White Blood Count 2.8 10^3/uL Low 3.5-10.8 29 Red Blood Count 3.44 10^6/uL Low 4.0-5.4 Hemoglobin 11.2 g/dL Low 12.0-16.0 Hematocrit 33 % Low 35-47 Mean Corpuscular Volume 96 fL 80-97 Mean Corpuscular Hemoglobin 33 pg High 27-31 Mean Corpuscular HGB Conc 34 g/dL 31-36 Red Cell Distribution Width 20 % High 10.5-15 Platelet Count 266 10^3/uL 150-450 Mean Platelet Volume 7 um3 Low 7.4-10.4 Abs Neutrophils 1.2 10^3/uL Low 1.5-7.7 Abs Lymphocytes 1.2 10^3/uL 1.0-4.8 Abs Monocytes 0.2 10^3/uL 0-0.8 Abs Eosinophils 0.1 10^3/uL 0-0.6 Abs Basophils 0.1 10^3/uL 0-0.2 Abs Nucleated RBC 0 10^3/uL Granulocyte % 43.6 % 38-83 Lymphocyte % 43.3 % 25-47 Monocyte % 7.7 % 1-9 Eosinophil % 2.3 % 0-6 Basophil % 3.1 % High 0-2 Nucleated Red Blood Cells % 0 Laboratory test finding 04/04/2017 Troponin-I (TnI) 0.01 ng/mL <0.04 D Dimer Quantitative > 1050 ng/mL High Less Than 230 30 Comp Metabolic Panel 04/04/2017 Sodium 134 mmol/L 133-145 Potassium 3.5 mmol/L 3.5-5.0 Chloride 105 mmol/L 101-111 Co2 Carbon Dioxide 23 mmol/L 22-32 Anion Gap 6 mmol/L 2-11 Glucose 134 mg/dL High 70-100 Blood Urea Nitrogen 9 mg/dL 6-24 Creatinine 0.72 mg/dL 0.51-0.95 BUN/Creatinine Ratio 12.5 8-20 Calcium 9.4 mg/dL 8.6-10.3 Total Protein 7.2 g/dL 6.4-8.9 Albumin 3.5 g/dL 3.2-5.2 Globulin 3.7 g/dL 2-4 Albumin/Globulin Ratio 0.9 Low 1-3 Total Bilirubin 0.60 mg/dL 0.2-1.0 Alkaline Phosphatase 102 U/L 34-104 Alt 22 U/L 7-52 Ast 38 U/L 13-39 Egfr Non- 82.1 >60 Egfr 105.6 >60 31 CBC Auto Diff 03/14/2017 White Blood Count 3.8 10^3/uL 3.5-10.8 Red Blood Count 3.69 10^6/uL Low 4.0-5.4 Hemoglobin 11.7 g/dL Low 12.0-16.0 Hematocrit 34 % Low 35-47 Mean Corpuscular Volume 93 fL 80-97 Mean Corpuscular Hemoglobin 32 pg High 27-31 Mean Corpuscular HGB Conc 34 g/dL 31-36 Red Cell Distribution Width 21 % High 10.5-15 Platelet Count 167 10^3/uL 150-450 Mean Platelet Volume 9 um3 7.4-10.4 Abs Neutrophils 1.5 10^3/uL 1.5-7.7 Abs Lymphocytes 1.3 10^3/uL 1.0-4.8 Abs Monocytes 0.7 10^3/uL 0-0.8 Abs Eosinophils 0.2 10^3/uL 0-0.6 Abs Basophils 0 10^3/uL 0-0.2 Abs Nucleated RBC 0 10^3/uL Granulocyte % 40.3 % 38-83 Lymphocyte % 35.5 % 25-47 Monocyte % 18.8 % High 1-9 Eosinophil % 4.1 % 0-6 Basophil % 1.3 % 0-2 Nucleated Red Blood Cells % 0 Comp Metabolic Panel 01/18/2017 Sodium 137 mmol/L 133-145 Potassium 4.0 mmol/L 3.5-5.0 Chloride 106 mmol/L 101-111 Co2 Carbon Dioxide 27 mmol/L 22-32 Anion Gap 4 mmol/L 2-11 Glucose 90 mg/dL 70-100 Blood Urea Nitrogen 10 mg/dL 6-24 Creatinine 0.71 mg/dL 0.51-0.95 BUN/Creatinine Ratio 14.1 8-20 Calcium 9.4 mg/dL 8.6-10.3 Total Protein 6.9 g/dL 6.4-8.9 Albumin 3.6 g/dL 3.2-5.2 Globulin 3.3 g/dL 2-4 Albumin/Globulin Ratio 1.1 1-3 Total Bilirubin 0.50 mg/dL 0.2-1.0 Alkaline Phosphatase 88 U/L 34-104 Alt 12 U/L 7-52 Ast 22 U/L 13-39 Egfr Non- 83.4 >60 Egfr 107.3 >60 32 CBC Auto Diff 01/18/2017 White Blood Count 3.0 10^3/uL Low 3.5-10.8 33 Red Blood Count 4.01 10^6/uL 4.0-5.4 Hemoglobin 11.9 g/dL Low 12.0-16.0 Hematocrit 36 % 35-47 Mean Corpuscular Volume 90 fL 80-97 Mean Corpuscular Hemoglobin 30 pg 27-31 Mean Corpuscular HGB Conc 33 g/dL 31-36 Red Cell Distribution Width 18 % High 10.5-15 Platelet Count 201 10^3/uL 150-450 Mean Platelet Volume 9 um3 7.4-10.4 Abs Neutrophils 1.0 10^3/uL Low 1.5-7.7 Abs Lymphocytes 1.4 10^3/uL 1.0-4.8 Abs Monocytes 0.4 10^3/uL 0-0.8 Abs Eosinophils 0.2 10^3/uL 0-0.6 Abs Basophils 0.1 10^3/uL 0-0.2 Abs Nucleated RBC 0 10^3/uL Granulocyte % 31.4 % Low 38-83 Lymphocyte % 46.4 % 25-47 Monocyte % 13.1 % High 1-9 Eosinophil % 7.4 % High 0-6 Basophil % 1.7 % 0-2 Nucleated Red Blood Cells % 0.1 Laboratory test finding 01/18/2017 CA 19-9 46 U/mL <55 34 Comp Metabolic Panel 12/17/2016 Sodium 133 mmol/L 133-145 Potassium 3.6 mmol/L 3.5-5.0 Chloride 105 mmol/L 101-111 Co2 Carbon Dioxide 22 mmol/L 22-32 Anion Gap 6 mmol/L 2-11 Glucose 147 mg/dL High 70-100 Blood Urea Nitrogen 11 mg/dL 6-24 Creatinine 0.58 mg/dL 0.51-0.95 BUN/Creatinine Ratio 19.0 8-20 Calcium 8.4 mg/dL Low 8.6-10.3 Total Protein 6.2 g/dL Low 6.4-8.9 Albumin 3.0 g/dL Low 3.2-5.2 Globulin 3.2 g/dL 2-4 Albumin/Globulin Ratio 0.9 Low 1-3 Total Bilirubin 1.50 mg/dL High 0.2-1.0 Alkaline Phosphatase 122 U/L High 34-104 Alt 38 U/L 7-52 Ast 61 U/L High 13-39 Egfr Non- 105.7 >60 Egfr 135.9 >60 35 Laboratory test finding 12/17/2016 Troponin-I (TnI) 0.01 ng/mL <0.04 Blood Culture SEE RESULT BELOW 36 Laboratory test finding 12/17/2016 Partial Thrombo Time 32.0 seconds 26.0 -36.3 PTT Lactic Acid 0.9 mmol/L 0.5-2.0 37 Inr/Protime 12/17/2016 Inr 1.12 High 0.89-1.11 CBC Auto Diff 12/17/2016 White Blood Count 5.8 10^3/uL 3.5-10.8 Red Blood Count 3.73 10^6/uL Low 4.0-5.4 Hemoglobin 10.8 g/dL Low 12.0-16.0 Hematocrit 34 % Low 35-47 Mean Corpuscular Volume 91 fL 80-97 Mean Corpuscular Hemoglobin 29 pg 27-31 Mean Corpuscular HGB Conc 32 g/dL 31-36 Red Cell Distribution Width 19 % High 10.5-15 Platelet Count 219 10^3/uL 150-450 Mean Platelet Volume 9 um3 7.4-10.4 Abs Neutrophils 5.4 10^3/uL 1.5-7.7 Abs Lymphocytes 0.4 10^3/uL Low 1.0-4.8 Abs Monocytes 0.1 10^3/uL 0-0.8 Abs Eosinophils 0 10^3/uL 0-0.6 Abs Basophils 0 10^3/uL 0-0.2 Abs Nucleated RBC 0 10^3/uL Granulocyte % 91.8 % High 38-83 Lymphocyte % 6.0 % Low 25-47 Monocyte % 1.1 % 1-9 Eosinophil % 0.3 % 0-6 Basophil % 0.8 % 0-2 Nucleated Red Blood Cells % 0 Laboratory test finding 11/20/2016 Lactic Acid 1.0 mmol/L 0.5-2.0 38 B-Type Natriuretic Peptide BNP 29 pg/mL 39 Inr/Protime 11/20/2016 Inr 1.06 0.89-1.11 Laboratory test finding 11/20/2016 Troponin-I (TnI) 0.01 ng/mL <0.04 Comp Metabolic Panel 11/20/2016 Sodium 132 mmol/L Low 133-145 Potassium 3.6 mmol/L 3.5-5.0 Chloride 104 mmol/L 101-111 Co2 Carbon Dioxide 23 mmol/L 22-32 Anion Gap 5 mmol/L 2-11 Glucose 97 mg/dL 70-100 Blood Urea Nitrogen 9 mg/dL 6-24 Creatinine 0.53 mg/dL 0.51-0.95 BUN/Creatinine Ratio 17.0 8-20 Calcium 8.6 mg/dL 8.6-10.3 Total Protein 6.0 g/dL Low 6.4-8.9 Albumin 3.1 g/dL Low 3.2-5.2 Globulin 2.9 g/dL 2-4 Albumin/Globulin Ratio 1.1 1-3 Total Bilirubin 1.00 mg/dL 0.2-1.0 Alkaline Phosphatase 105 U/L High 34-104 Alt 96 U/L High 7-52 Ast 97 U/L High 13-39 Egfr Non- 117.3 >60 Egfr 150.8 >60 40 Laboratory test finding 11/20/2016 Creatine Kinase(CK) 49 U/L 10-223 C Reactive Protein 15.69 mg/L High < 5.00 41 CBC Auto Diff 11/20/2016 White Blood Count 1.2 10^3/uL Low 3.5-10.8 Red Blood Count 2.80 10^6/uL Low 4.0-5.4 Hemoglobin 8.3 g/dL Low 12.0-16.0 Hematocrit 25 % Low 35-47 Mean Corpuscular Volume 89 fL 80-97 Mean Corpuscular Hemoglobin 30 pg 27-31 Mean Corpuscular HGB Conc 34 g/dL 31-36 Red Cell Distribution Width 25 % High 10.5-15 Platelet Count 101 10^3/uL Low 150-450 Mean Platelet Volume 8 um3 7.4-10.4 Abs Lymphocytes 0.5 10^3/uL Low 1.0-4.8 Abs Monocytes 0 10^3/uL 0-0.8 Abs Eosinophils 0 10^3/uL 0-0.6 Abs Basophils 0 10^3/uL 0-0.2 Abs Nucleated RBC 0 10^3/uL Granulocyte % 54.5 % 38-83 Lymphocyte % 41.3 % 25-47 Monocyte % 1.0 % 1-9 Eosinophil % 1.9 % 0-6 Basophil % 1.3 % 0-2 Nucleated Red Blood Cells % 0.1 Abs Neutrophils 0.7 10^3/uL Low 1.5-7.7 42 Laboratory test 11/20/2016 Blood Culture SEE RESULT BELOW 43 finding CBC Auto Diff 10/26/2016 White Blood Count 1.1 10^3/uL Low 3.5-10.8 Red Blood Count 3.30 10^6/uL Low 4.0-5.4 Hemoglobin 9.2 g/dL Low 12.0-16.0 Hematocrit 28 % Low 35-47 Mean Corpuscular Volume 86 fL 80-97 Mean Corpuscular Hemoglobin 28 pg 27-31 Mean Corpuscular HGB Conc 33 g/dL 31-36 Red Cell Distribution Width 19 % High 10.5-15 Platelet Count 134 10^3/uL Low 150-450 Mean Platelet Volume 8 um3 7.4-10.4 Abs Neutrophils 0.1 10^3/uL Low 1.5-7.7 Abs Lymphocytes 0.9 10^3/uL Low 1.0-4.8 Abs Monocytes 0.1 10^3/uL 0-0.8 Abs Eosinophils 0 10^3/uL 0-0.6 Abs Basophils 0 10^3/uL 0-0.2 Abs Nucleated RBC 0 10^3/uL Granulocyte % 10.8 % Low 38-83 Lymphocyte % 81.1 % High 25-47 Monocyte % 6.1 % 1-9 Eosinophil % 0.9 % 0-6 Basophil % 1.1 % 0-2 Nucleated Red Blood Cells % 0.4 Laboratory test finding 10/04/2016 CA 19-9 121 U/mL <55 44 Comp Metabolic Panel 10/04/2016 Sodium 133 mmol/L 133-145 Potassium 4.3 mmol/L 3.5-5.0 Chloride 101 mmol/L 101-111 Co2 Carbon Dioxide 22 mmol/L 22-32 Anion Gap 10 mmol/L 2-11 Glucose 111 mg/dL High 70-100 Blood Urea Nitrogen 9 mg/dL 6-24 Creatinine 0.66 mg/dL 0.51-0.95 BUN/Creatinine Ratio 13.6 8-20 Calcium 8.9 mg/dL 8.6-10.3 Total Protein 6.3 g/dL Low 6.4-8.9 Albumin 3.1 g/dL Low 3.2-5.2 Globulin 3.2 g/dL 2-4 Albumin/Globulin Ratio 1.0 1-3 Total Bilirubin 0.80 mg/dL 0.2-1.0 Alkaline Phosphatase 115 U/L High 34-104 Alt 13 U/L 7-52 Ast 16 U/L 13-39 Egfr Non- 91.0 >60 Egfr 117.1 >60 45 CBC Auto Diff 10/04/2016 White Blood Count 5.2 10^3/uL 3.5-10.8 Red Blood Count 3.73 10^6/uL Low 4.0-5.4 Hemoglobin 10.3 g/dL Low 12.0-16.0 Hematocrit 32 % Low 35-47 Mean Corpuscular Volume 85 fL 80-97 Mean Corpuscular Hemoglobin 28 pg 27-31 Mean Corpuscular HGB Conc 32 g/dL 31-36 Red Cell Distribution Width 15 % 10.5-15 Platelet Count 612 10^3/uL High 150-450 Mean Platelet Volume 8 um3 7.4-10.4 Abs Neutrophils 3.5 10^3/uL 1.5-7.7 Abs Lymphocytes 0.7 10^3/uL Low 1.0-4.8 Abs Monocytes 0.9 10^3/uL High 0-0.8 Abs Eosinophils 0.1 10^3/uL 0-0.6 Abs Basophils 0 10^3/uL 0-0.2 Abs Nucleated RBC 0 10^3/uL Granulocyte % 66.3 % 38-83 Lymphocyte % 13.0 % Low 25-47 Monocyte % 17.1 % High 1-9 Eosinophil % 2.7 % 0-6 Basophil % 0.9 % 0-2 Nucleated Red Blood Cells % 0.1 CBC Auto Diff 09/20/2016 White Blood Count 2.5 10^3/uL Low 3.5-10.8 46 Red Blood Count 3.57 10^6/uL Low 4.0-5.4 Hemoglobin 10.1 g/dL Low 12.0-16.0 Hematocrit 30 % Low 35-47 Mean Corpuscular Volume 85 fL 80-97 Mean Corpuscular Hemoglobin 28 pg 27-31 Mean Corpuscular HGB Conc 33 g/dL 31-36 Red Cell Distribution Width 13 % 10.5-15 Platelet Count 225 10^3/uL 150-450 Mean Platelet Volume 8 um3 7.4-10.4 Abs Neutrophils 1.6 10^3/uL 1.5-7.7 Abs Lymphocytes 0.8 10^3/uL Low 1.0-4.8 Abs Monocytes 0.1 10^3/uL 0-0.8 Abs Eosinophils 0.1 10^3/uL 0-0.6 Abs Basophils 0 10^3/uL 0-0.2 Abs Nucleated RBC 0 10^3/uL Granulocyte % 63.1 % 38-83 Lymphocyte % 30.5 % 25-47 Monocyte % 2.3 % 1-9 Eosinophil % 2.8 % 0-6 Basophil % 1.3 % 0-2 Nucleated Red Blood Cells % 0.1 CBC Auto Diff 09/13/2016 White Blood Count 2.1 10^3/uL Low 3.5-10.8 Red Blood Count 3.70 10^6/uL Low 4.0-5.4 Hemoglobin 10.4 g/dL Low 12.0-16.0 Hematocrit 31 % Low 35-47 Mean Corpuscular Volume 85 fL 80-97 Mean Corpuscular Hemoglobin 28 pg 27-31 Mean Corpuscular HGB Conc 33 g/dL 31-36 Red Cell Distribution Width 13 % 10.5-15 Platelet Count 468 10^3/uL High 150-450 Mean Platelet Volume 7 um3 Low 7.4-10.4 Abs Neutrophils 1.0 10^3/uL Low 1.5-7.7 Abs Lymphocytes 0.8 10^3/uL Low 1.0-4.8 Abs Monocytes 0.2 10^3/uL 0-0.8 Abs Eosinophils 0 10^3/uL 0-0.6 Abs Basophils 0.1 10^3/uL 0-0.2 Abs Nucleated RBC 0 10^3/uL Granulocyte % 46.8 % 38-83 Lymphocyte % 39.4 % 25-47 Monocyte % 8.6 % 1-9 Eosinophil % 2.2 % 0-6 Basophil % 3.0 % High 0-2 Nucleated Red Blood Cells % 0.2 CBC Auto Diff 08/22/2016 White Blood Count 1.7 10^3/uL Low 3.5-10.8 47 Red Blood Count 3.71 10^6/uL Low 4.0-5.4 Hemoglobin 10.5 g/dL Low 12.0-16.0 Hematocrit 32 % Low 35-47 Mean Corpuscular Volume 86 fL 80-97 Mean Corpuscular Hemoglobin 28 pg 27-31 Mean Corpuscular HGB Conc 33 g/dL 31-36 Red Cell Distribution Width 13 % 10.5-15 Platelet Count 137 10^3/uL Low 150-450 Mean Platelet Volume 7 um3 Low 7.4-10.4 Abs Neutrophils 0.6 10^3/uL Low 1.5-7.7 Abs Lymphocytes 0.9 10^3/uL Low 1.0-4.8 Abs Monocytes 0.2 10^3/uL 0-0.8 Abs Eosinophils 0 10^3/uL 0-0.6 Abs Basophils 0 10^3/uL 0-0.2 Abs Nucleated RBC 0.01 10^3/uL Granulocyte % 35.5 % Low 38-83 Lymphocyte % 52.2 % High 25-47 Monocyte % 10.5 % High 1-9 Eosinophil % 1.2 % 0-6 Basophil % 0.6 % 0-2 Nucleated Red Blood Cells % 0.4 Laboratory test finding 08/22/2016 Pathologist Review (SEE NOTE) 48 CBC Auto Diff 08/15/2016 White Blood Count 3.1 10^3/uL Low 3.5-10.8 Red Blood Count 4.24 10^6/uL 4.0-5.4 Hemoglobin 12.1 g/dL 12.0-16.0 Hematocrit 37 % 35-47 Mean Corpuscular Volume 86 fL 80-97 Mean Corpuscular Hemoglobin 29 pg 27-31 Mean Corpuscular HGB Conc 33 g/dL 31-36 Red Cell Distribution Width 13 % 10.5-15 Platelet Count 167 10^3/uL 150-450 Mean Platelet Volume 8 um3 7.4-10.4 Abs Neutrophils 1.6 10^3/uL 1.5-7.7 Abs Lymphocytes 1.1 10^3/uL 1.0-4.8 Abs Monocytes 0.3 10^3/uL 0-0.8 Abs Eosinophils 0.1 10^3/uL 0-0.6 Abs Basophils 0 10^3/uL 0-0.2 Abs Nucleated RBC 0 10^3/uL Granulocyte % 50.8 % 38-83 Lymphocyte % 36.6 % 25-47 Monocyte % 9.7 % High 1-9 Eosinophil % 2.0 % 0-6 Basophil % 0.9 % 0-2 Nucleated Red Blood Cells % 0.1 CBC Auto Diff 08/08/2016 White Blood Count 4.0 10^3/uL 3.5-10.8 Red Blood Count 4.36 10^6/uL 4.0-5.4 Hemoglobin 12.7 g/dL 12.0-16.0 Hematocrit 38 % 35-47 Mean Corpuscular Volume 88 fL 80-97 Mean Corpuscular Hemoglobin 29 pg 27-31 Mean Corpuscular HGB Conc 33 g/dL 31-36 Red Cell Distribution Width 14 % 10.5-15 Platelet Count 239 10^3/uL 150-450 Mean Platelet Volume 8 um3 7.4-10.4 Abs Neutrophils 2.2 10^3/uL 1.5-7.7 Abs Lymphocytes 1.2 10^3/uL 1.0-4.8 Abs Monocytes 0.3 10^3/uL 0-0.8 Abs Eosinophils 0.2 10^3/uL 0-0.6 Abs Basophils 0.1 10^3/uL 0-0.2 Abs Nucleated RBC 0.01 10^3/uL Granulocyte % 55.2 % 38-83 Lymphocyte % 30.0 % 25-47 Monocyte % 8.4 % 1-9 Eosinophil % 5.1 % 0-6 Basophil % 1.3 % 0-2 Nucleated Red Blood Cells % 0.2 Comp Metabolic Panel 08/08/2016 Sodium 133 mmol/L 133-145 Potassium 3.7 mmol/L 3.5-5.0 Chloride 104 mmol/L 101-111 Co2 Carbon Dioxide 25 mmol/L 22-32 Anion Gap 4 mmol/L 2-11 Glucose 120 mg/dL High 70-100 Blood Urea Nitrogen 5 mg/dL Low 6-24 Creatinine 0.65 mg/dL 0.51-0.95 BUN/Creatinine Ratio 7.7 Low 8-20 Calcium 9.3 mg/dL 8.6-10.3 Total Protein 7.0 g/dL 6.4-8.9 Albumin 3.6 g/dL 3.2-5.2 Globulin 3.4 g/dL 2-4 Albumin/Globulin Ratio 1.1 1-3 Total Bilirubin 0.50 mg/dL 0.2-1.0 Alkaline Phosphatase 102 U/L 34-104 Alt 6 U/L Low 7-52 Ast 15 U/L 13-39 Egfr Non- 92.7 >60 Egfr 119.2 >60 49 Laboratory test finding 08/08/2016 CA 19-9 51924 U/mL <55 50 Liver Function Panel 08/08/2016 Direct Bilirubin 0.10 mg/dL 0.03-0.18 Indirect Bilirubin 0.4 mg/dL 0.3-1.0 Laboratory test finding 07/14/2016 Erythrocyte Sed Rate 36 mm/Hr High 0- 30 51 Angiotensin Converting Enzyme 25 U/L 8 - 53 52 CA 19-9 79251 U/mL <55 53 Comp Metabolic Panel 07/05/2016 Sodium 137 mmol/L 133-145 Potassium 3.7 mmol/L 3.5-5.0 Chloride 105 mmol/L 101-111 Co2 Carbon Dioxide 27 mmol/L 22-32 Anion Gap 5 mmol/L 2-11 Glucose 123 mg/dL High 70-100 Blood Urea Nitrogen 9 mg/dL 6-24 Creatinine 0.74 mg/dL 0.51-0.95 BUN/Creatinine Ratio 12.2 8-20 Calcium 9.5 mg/dL 8.6-10.3 Total Protein 6.9 g/dL 6.4-8.9 Albumin 3.7 g/dL 3.2-5.2 Globulin 3.2 g/dL 2-4 Albumin/Globulin Ratio 1.2 1-3 Total Bilirubin 0.60 mg/dL 0.2-1.0 Alkaline Phosphatase 95 U/L 34-104 Alt 7 U/L 7-52 Ast 14 U/L 13-39 Egfr Non- 79.8 >60 Egfr 102.6 >60 54 Protein Electrophoresis 07/05/2016 Total Protein(Pep) 7.2 g/dL 6.3 - 7.9 Albumin 3.2 g/dL 3.4-4.7 Alpha-1 Globulin 0.3 g/dL 0.1-0.3 Alpha-2 Globulin 1.1 g/dL 0.6-1.0 Beta Globulin 1.0 g/dL 0.7-1.2 Gamma Globulin 1.6 g/dL 0.6-1.6 Albumin/Globulin Ratio 0.79 Impression See Comment 55 Immunofixation See Comment 56 Laboratory test finding 07/05/2016 Erythrocyte Sed Rate 36 mm/Hr High 0- 30 Lipase < 10 U/L Low 11.0-82.0 Amylase 15 U/L Low 29-103 Laboratory test finding 07/05/2016 LDH 175 U/L 140-271 CBC Auto Diff 07/05/2016 White Blood Count 4.0 10^3/uL 3.5-10.8 Red Blood Count 4.56 10^6/uL 4.0-5.4 Hemoglobin 13.1 g/dL 12.0-16.0 Hematocrit 40 % 35-47 Mean Corpuscular Volume 88 fL 80-97 Mean Corpuscular Hemoglobin 29 pg 27-31 Mean Corpuscular HGB Conc 33 g/dL 31-36 Red Cell Distribution Width 14 % 10.5-15 Platelet Count 224 10^3/uL 150-450 Mean Platelet Volume 8 um3 7.4-10.4 Abs Neutrophils 2.4 10^3/uL 1.5-7.7 Abs Lymphocytes 1.1 10^3/uL 1.0-4.8 Abs Monocytes 0.3 10^3/uL 0-0.8 Abs Eosinophils 0.1 10^3/uL 0-0.6 Abs Basophils 0 10^3/uL 0-0.2 Abs Nucleated RBC 0 10^3/uL Granulocyte % 59.4 % 38-83 Lymphocyte % 28.2 % 25-47 Monocyte % 7.7 % 1-9 Eosinophil % 3.7 % 0-6 Basophil % 1.0 % 0-2 Nucleated Red Blood Cells % 0 Lipid Profile (Trig/Chol/HDL) 06/13/2016 Triglycerides 127 mg/dL 57 Cholesterol 193 mg/dL 58 HDL Cholesterol 37.4 mg/dL 59 LDL Cholesterol 130 mg/dL 60 Basic Metabolic Panel 06/13/2016 Sodium 136 mmol/L 133-145 Potassium 4.0 mmol/L 3.5-5.0 Chloride 104 mmol/L 101-111 Co2 Carbon Dioxide 26 mmol/L 22-32 Anion Gap 6 mmol/L 2-11 Glucose 115 mg/dL High 70-100 Blood Urea Nitrogen 7 mg/dL 6-24 Creatinine 0.73 mg/dL 0.51-0.95 BUN/Creatinine Ratio 9.6 8-20 Calcium 9.9 mg/dL 8.6-10.3 Egfr Non- 81.0 >60 Egfr 104.2 >60 61 Laboratory test finding 06/10/2015 Lactic Acid 1.1 mmol/L 0.5-2.0 62 Comp Metabolic Panel 06/10/2015 Sodium 134 mmol/L 133-145 Potassium 3.4 mmol/L Low 3.5-5.0 Chloride 102 mmol/L 101-111 Co2 Carbon Dioxide 24 mmol/L 22-32 Anion Gap 8 mmol/L 2-11 Glucose 114 mg/dL High 70-100 Blood Urea Nitrogen 10 mg/dL 6-24 Creatinine 0.94 mg/dL 0.51-0.95 BUN/Creatinine Ratio 10.6 8-20 Calcium 9.5 mg/dL 8.6-10.3 Total Protein 7.8 g/dL 6.4-8.9 Albumin 4.2 g/dL 3.2-5.2 Globulin 3.6 g/dL 2-4 Albumin/Globulin Ratio 1.2 1-3 Total Bilirubin 0.40 mg/dL 0.2-1.0 Alkaline Phosphatase 71 U/L 34-104 Alt 11 U/L 7-52 Ast 17 U/L 13-39 Egfr Non- 60.7 >60 Egfr 78.1 >60 63 Laboratory test finding 06/10/2015 Magnesium 2.0 mg/dL 1.9-2.7 64 Creatine Kinase(CK) 126 U/L 10-223 Troponin-I (TnI) 0.00 ng/mL <0.03 65 Alcohol < 10 mg/dL <10 TSH (Thyroid Stim Horm) 2.15 ?IU/mL 0.34-5.60 CBC Auto Diff 06/10/2015 White Blood Count 5.6 10^3/uL 3.5-10.8 Red Blood Count 4.77 10^6/uL 4.0-5.4 Hemoglobin 14.3 g/dL 12.0-16.0 Hematocrit 43 % 35-47 Mean Corpuscular Volume 91 fL 80-97 Mean Corpuscular Hemoglobin 30 pg 27-31 Mean Corpuscular HGB Conc 33 g/dL 31-36 Red Cell Distribution Width 14 % 10.5-15 Platelet Count 245 10^3/uL 150-450 Mean Platelet Volume 8 um3 7.4-10.4 Abs Neutrophils 2.9 10^3/uL 1.5-7.7 Abs Lymphocytes 2.1 10^3/uL 1.0-4.8 Abs Monocytes 0.4 10^3/uL 0-0.8 Abs Eosinophils 0.1 10^3/uL 0-0.6 Abs Basophils 0.1 10^3/uL 0-0.2 Abs Nucleated RBC 0 10^3/uL Granulocyte % 51.7 % 38-83 Lymphocyte % 37.0 % 25-47 Monocyte % 7.7 % 1-9 Eosinophil % 2.5 % 0-6 Basophil % 1.1 % 0-2 Nucleated Red Blood Cells % 0.1 Laboratory test finding 02/15/2015 Surgical Pathology SEE RESULT BELOW 66 Lipid Profile 12/25/2014 Triglycerides 162 mg/dL 67, 68 (Trig/Chol/HDL) Cholesterol 246 mg/dL 67, 69 HDL Cholesterol 37.6 mg/dL 67, 70 LDL Cholesterol 176 mg/dL 67, 71 Laboratory test finding 12/25/2014 Glucose 95 mg/dL 70-100 67, 72 Lipid Profile (Trig/Chol/HDL) 06/25/2014 Triglycerides 139 mg/dL 73 Cholesterol 238 mg/dL 74 HDL Cholesterol 37.3 mg/dL 75 LDL Cholesterol 173 mg/dL 76 Laboratory test finding 04/01/2014 Hemoglobin A1c 5.7 % Less than 6.0 77 Basic Metabolic Panel 04/01/2014 Sodium 138 mmol/L 133-145 Potassium 4.2 mmol/L 3.5-5.0 78 Chloride 105 mmol/L 101-111 Co2 Carbon Dioxide 27 mmol/L 22-32 Anion Gap 6 mmol/L 2-11 Glucose 92 mg/dL 70-100 Blood Urea Nitrogen 12 mg/dL 6-24 Creatinine 0.97 mg/dL High 0.51-0.95 BUN/Creatinine Ratio 12.4 8-20 Calcium 9.6 mg/dL 8.6-10.3 Egfr Non- 58.8 >60 Egfr 75.6 >60 79 Laboratory test finding 04/01/2014 Cholesterol 235 mg/dL 80 LDL Cholesterol Direct 146 mg/dL 81 HDL Cholesterol 36.2 mg/dL 82 Basic Metabolic Panel 10/21/2008 Sodium 138 mmol/L 135-145 83 Potassium 4.3 mmol/L 3.5-5.0 83 Chloride 106 mmol/L 101-111 83 Co2 (Carbon Dioxide) 28.0 mmol/L 22-32 83 Anion Gap 4.0 mmol/L 2-11 83, 84 Glucose 94 mg/dL 70-100 83, 85 BUN 9 mg/dL 6-24 83 Creatinine 0.90 mg/dL 0.50-1.40 83 One Over Creatinine 1.10 83 BUN/Creatinine Ratio 10.0 8-20 83 Calcium 9.7 mg/dL 8.1-9.9 83, 86 Lipid Profile (Trig/Chol/HDL) 10/21/2008 Triglyceride 252 mg/dL High 40- 200 83 Cholesterol 234 mg/dL High Less Than 200 83, 87 High Density Lipoprotein 32 mg/dL Low 40-60 83, 88 Cholesterol/HDL Ratio 7.31 AVERAGE High 1-4.44 83 Low Density Lipoprotein 152 mg/dL High Less Than 100 83, 89 Lipid Panel - [facility] 06/12/2008 CPK (Creatine Kinase) 128 U/L 0-170 83 Comp Metabolic Panel 06/12/2008 Sodium 140 mmol/L 135-145 83 Potassium 4.0 mmol/L 3.5-5.0 83 Chloride 107 mmol/L 101-111 83 Co2 (Carbon Dioxide) 26.0 mmol/L 22-32 83 Anion Gap 7.0 mmol/L 2-11 83, 90 Glucose 105 mg/dL High 70-100 83, 91 BUN 5 mg/dL Low 6-24 83 Creatinine 0.90 mg/dL 0.50-1.40 83 One Over Creatinine 1.10 83 BUN/Creatinine Ratio 5.6 Low 8-20 83 Calcium 9.4 mg/dL 8.1-9.9 83, 92 Total Protein 6.5 GM/DL 6.2-8.1 83 Albumin 3.7 GM/DL 3.6-5.4 83 Globulin 2.8 GM/DL 2-4 83 Albumin/Globulin Ratio 1.3 1-3 83 Bilirubin Total 0.8 mg/dL 0.4-1.5 83 Alkaline Phosphatase 83 U/L 30-110 83 Alt (SGPT) 12 U/L Low 14-54 83 Ast (Sgot) 16 U/L 12-42 83 Lipid Profile (Trig/Chol/HDL) 06/12/2008 Triglyceride 199 mg/dL 40-200 83 Cholesterol 215 mg/dL High Less Than 200 83, 93 High Density Lipoprotein 32 mg/dL Low 40-60 83, 94 Cholesterol/HDL Ratio 6.72 AVERAGE High 1-4.44 83 Low Density Lipoprotein 143 mg/dL High Less Than 100 83, 95 Laboratory test finding 05/23/2007 Erythrocyte Sed Rate 29 MM/HR 0-30 CBC With Electronic Diff 05/23/2007 White Blood Count 5.9 CUMM 4.8-10.8 Abs Basophils 0 0-0.2 Abs Eosinophils 0.3 0-0.6 Absolute Neutrophil Count 2.4 1.5-7.7 Abs Lymphs 2.7 1.0-4.8 Abs Mononuclear 0.5 0-0.8 Basophil % 0.8 % 0-2 Hematocrit 43 % 35-47 Hemoglobin 14.9 g/dL 12.0-16.0 Eosinophil % 5.2 % 0-6 Gran % 40.6 % 38-83 Lymph % 45.4 % High 20-45 Mean Corpuscular HGB Cone 35 g/dL 32-36 Mean Corpuscular Hemoglob 30 pg 27-31 Mean Corpuscular Volume 87 um3 79-97 Mean Platelet Volume 8.1 um3 7.4-10.4 Mononuclear % 8.0 % 1-9 Platelet Count 369 CUMM 150-450 Red Cell Count 4.97 CUMM 4.2-5.4 Redcell Distribution WDTH 13 % 10.5-15 Laboratory test finding 05/23/2007 C Reactive Protein < 0.5 mg/dL Less Than 0.5 Hla B27 Negative Negative 96 1 UFH therapeutic range: 0.30-0.70 IU/mL LMWH therapeutic range: 0.50-1.00 IU/mL 0.50-1.00 IU/mL for twice daily dosing 1.00-2.00 IU/mL for once daily dosing (sample obtained 4-6 hours following subcutaneous injection) LMWH prophylactic range:0.10-0.30 IU/mL ADDITIONAL INFORMATION Heparin Anti-Xa is used to measure heparin concentrations in patients receiving low molecular weight heparin (LMWH) or unfractionated heparin (UFH). Test Performed by: [place] [address] 2 Because ethnic data is not always readily available, this report includes an eGFR for both -Americans and non- Americans. The National Kidney Disease Education Program (NKDEP) does not endorse the use of the MDRD equation for patients that are not between the ages of 18 and 70, are , have extremes of body size, muscle mass, or nutritional status, or are non- or non-. According to the National Kidney Foundation, irrespective of diagnosis, the stage of the disease is based on the level of kidney function: Stage Description GFR(mL/min/1.73 m(2)) 1 Kidney damage with normal or decreased GFR 90 2 Kidney damage with mild decrease in GFR 60-89 3 Moderate decrease in GFR 30-59 4 Severe decrease in GFR 15-29 5 Kidney failure <15 (or dialysis) 3 TXS Severe Sepsis and Septic Shock Management Bundle Measure requires all lactic acids initially measuring >2.0 mmol/L be repeated. 4 >100 to <200 pg/mL: likely compensated congestive heart failure (CHF) 200 to 400 pg/mL: likely moderate CHF >400 pg/mL: likely moderate to severe CHF 5 >100 to <200 pg/mL: likely compensated congestive heart failure (CHF) 200 to 400 pg/mL: likely moderate CHF >400 pg/mL: likely moderate to severe CHF 6 SEE RESULT BELOW Name: MAY VELÁZQUEZ : [address]: Celso Hernandez MD Acct: [id number] Unit: [id number] AGE: 61 Location: [place] [address] Re11/04/17 Dis: 11/06/17 SEX: F Status: DIS IN SPEC: [id number] MELINDA: 11/04/17-1516 [facility] DR: Claudette Sanders MD REQ: [id number] RECD: 11/04/17 STATUS: ORQUIDEA ARCHER DR: Jesse Ndiaye MD _ SOURCE: BLOOD,VENO SPDESC: ORDERED: Blood Cult Procedure Result Reported Site Aerobic Culture Bottle Final 11/09/17- 1521 ML No Growth Day 5 Anaerobic Culture Bottle Final 11/09/17- 1521 ML No Growth Day 5 * ML - Main Lab . END OF REPORT DEPARTMENT OF PATHOLOGY, [address] [place] [address] Denzel Villatoro M.D. Director [facility] # [id number] 7 Acute inflammation: >10.00 8 Because ethnic data is not always readily available, this report includes an eGFR for both -Americans and non- Americans. The National Kidney Disease Education Program (NKDEP) does not endorse the use of the MDRD equation for patients that are not between the ages of 18 and 70, are , have extremes of body size, muscle mass, or nutritional status, or are non- or non-. According to the National Kidney Foundation, irrespective of diagnosis, the stage of the disease is based on the level of kidney function: Stage Description GFR(mL/min/1.73 m(2)) 1 Kidney damage with normal or decreased GFR 90 2 Kidney damage with mild decrease in GFR 60-89 3 Moderate decrease in GFR 30-59 4 Severe decrease in GFR 15-29 5 Kidney failure <15 (or dialysis) 9 Specimen hemolyzed. Result may not be valid. Critical Result LACT:2.2 Called to [id number]. at: 15:12:11 by:[id number] Read back by:[id number]. [place] Severe Sepsis and Septic Shock Management Bundle Measure requires all lactic acids initially measuring >2.0 mmol/L be repeated. 10 ADDITIONAL INFORMATION The testing method is an immunoenzymatic assay manufactured by [employer] and performed on the Paybook DxI 800. Values obtained with different assay methods or kits may be different and cannot be used interchangeably. Test results cannot be interpreted as absolute evidence for the presence or absence of malignant disease. Test Performed by: [facility] [address] [place] [address] 11 Because ethnic data is not always readily available, this report includes an eGFR for both -Americans and non- Americans. The National Kidney Disease Education Program (NKDEP) does not endorse the use of the MDRD equation for patients that are not between the ages of 18 and 70, are , have extremes of body size, muscle mass, or nutritional status, or are non- or non-. According to the National Kidney Foundation, irrespective of diagnosis, the stage of the disease is based on the level of kidney function: Stage Description GFR(mL/min/1.73 m(2)) 1 Kidney damage with normal or decreased GFR 90 2 Kidney damage with mild decrease in GFR 60-89 3 Moderate decrease in GFR 30-59 4 Severe decrease in GFR 15-29 5 Kidney failure <15 (or dialysis) 12 Because ethnic data is not always readily available, this report includes an eGFR for both -Americans and non- Americans. The National Kidney Disease Education Program (NKDEP) does not endorse the use of the MDRD equation for patients that are not between the ages of 18 and 70, are , have extremes of body size, muscle mass, or nutritional status, or are non- or non-. According to the National Kidney Foundation, irrespective of diagnosis, the stage of the disease is based on the level of kidney function: Stage Description GFR(mL/min/1.73 m(2)) 1 Kidney damage with normal or decreased GFR 90 2 Kidney damage with mild decrease in GFR 60-89 3 Moderate decrease in GFR 30-59 4 Severe decrease in GFR 15-29 5 Kidney failure <15 (or dialysis) 13 ADDITIONAL INFORMATION The testing method is an immunoenzymatic assay manufactured by [employer] and performed on the Paybook DxI 800. Values obtained with different assay methods or kits may be different and cannot be used interchangeably. Test results cannot be interpreted as absolute evidence for the presence or absence of malignant disease. Test Performed by: [facility] [place] [id number] 14 Because ethnic data is not always readily available, this report includes an eGFR for both -Americans and non- Americans. The National Kidney Disease Education Program (NKDEP) does not endorse the use of the MDRD equation for patients that are not between the ages of 18 and 70, are , have extremes of body size, muscle mass, or nutritional status, or are non- or non-. According to the National Kidney Foundation, irrespective of diagnosis, the stage of the disease is based on the level of kidney function: Stage Description GFR(mL/min/1.73 m(2)) 1 Kidney damage with normal or decreased GFR 90 2 Kidney damage with mild decrease in GFR 60-89 3 Moderate decrease in GFR 30-59 4 Severe decrease in GFR 15-29 5 Kidney failure <15 (or dialysis) 15 ADDITIONAL INFORMATION The testing method is an immunoenzymatic assay manufactured by [employer] and performed on the Paybook DxI 800. Values obtained with different assay methods or kits may be different and cannot be used interchangeably. Test results cannot be interpreted as absolute evidence for the presence or absence of malignant disease. Test Performed by: [facility] [place] [address] 16 Because ethnic data is not always readily available, this report includes an eGFR for both -Americans and non- Americans. The National Kidney Disease Education Program (NKDEP) does not endorse the use of the MDRD equation for patients that are not between the ages of 18 and 70, are , have extremes of body size, muscle mass, or nutritional status, or are non- or non-. According to the National Kidney Foundation, irrespective of diagnosis, the stage of the disease is based on the level of kidney function: Stage Description GFR(mL/min/1.73 m(2)) 1 Kidney damage with normal or decreased GFR 90 2 Kidney damage with mild decrease in GFR 60-89 3 Moderate decrease in GFR 30-59 4 Severe decrease in GFR 15-29 5 Kidney failure <15 (or dialysis) 17 ADDITIONAL INFORMATION The testing method is an immunoenzymatic assay manufactured by [employer] and performed on the Paybook DxI 800. Values obtained with different assay methods or kits may be different and cannot be used interchangeably. Test results cannot be interpreted as absolute evidence for the presence or absence of malignant disease. Test Performed by: [facility] [address] [place] [address] 18 INTERPRETIVE INFORMATION: Albumin, Body Fluid A reference interval has not been established for body fluid specimens. Performed by [facility], [facility] [place] [address] [email or web address], Angel Bradford MD - Lab. Director Test Performed by: [facility] [address] [place] [address] 19 SEE RESULT BELOW Name: MAY VELÁZQUEZ : [address]: Perez Madden MD Acct: [id number] Unit: [id number] AGE: 61 Location: OR Re06/05/17 SEX: F Status: DEP SDC SPEC: [id number] MELINDA: 06/05/[address]: Perez Madden MD REQ: [id number] RECD: 06/05/17 STATUS: MATTHEW ARCHER DR: Gregg Brown MD _ ORDERED: LEVEL 4, NG THIN LAYER, IMMUNO-FIRST, IMMUNO-ADDL/ FINAL DIAGNOSIS Pleural effusion, left, thoracentesis: -- Metastatic adenocarcinoma. COMMENT: A cell block was prepared in the evaluation of this specimen. Smears and cell block reveal similar findings. Slides show numerous mesothelial cells and occasional cohesive groups of atypical cells suggestive of glandular formation. Immunohistochemical stains, with appropriately reacting controls, were performed with the following results: Calretinin negative in atypical cells CEA positive in atypical cells Vimentin negative in atypical cells Ismael EP-4 positive in atypical cells WT-1 negative in atypical cells Tag 72 positive in atypical cells TTF-1 negative in atypical cells The morphology and immunoprofile are diagnostic of metastatic adenocarcinoma. If further workup to determine site of origin is desired, please inform the laboratory and additional studies will be performed. Dr. Villatoro reviewed this case in intradepartmental consultation and agrees with the diagnosis. 1. PLEURAL - LEFT PLEURAL FLUID CONTINUED ON NEXT PAGE * ML=Testing performed at Main Lab DEPARTMENT OF PATHOLOGY, [address] [place] [address] Denzel Villatoro M.D. Director [place] # [id number] RUN DATE: 06/08/17 [facility] LAB LIVE PAGE 2 Patient: MAY VELÁZQUEZ [id number] (Continued) CLINICAL HISTORY (Continued) CLINICAL HISTORY Left pleural effusion GROSS DESCRIPTION 1250 mls of cloudy childress pleural fluid. Signed (signature on file) Wendy Virgen MD 05/14 1150 END OF REPORT * ML=Testing performed at Main Lab DEPARTMENT OF PATHOLOGY, [address] [place] [address] Denzel Villatoro M.D. Director SANDI # [id number] 20 REFERENCE VALUE Not Applicable 21 Test Performed by: [facility] - [address] [address] 22 REFERENCE VALUE Not Applicable 23 Test Performed by: [facility] - [facility] [address] [place] [address] 24 Because ethnic data is not always readily available, this report includes an eGFR for both -Americans and non- Americans. The National Kidney Disease Education Program (NKDEP) does not endorse the use of the MDRD equation for patients that are not between the ages of 18 and 70, are , have extremes of body size, muscle mass, or nutritional status, or are non- or non-. According to the National Kidney Foundation, irrespective of diagnosis, the stage of the disease is based on the level of kidney function: Stage Description GFR(mL/min/1.73 m(2)) 1 Kidney damage with normal or decreased GFR 90 2 Kidney damage with mild decrease in GFR 60-89 3 Moderate decrease in GFR 30-59 4 Severe decrease in GFR 15-29 5 Kidney failure <15 (or dialysis) 25 >100 to <200 pg/mL: likely compensated congestive heart failure (CHF) 200 to 400 pg/mL: likely moderate CHF >400 pg/mL: likely moderate to severe CHF 26 ADDITIONAL INFORMATION The testing method is an immunoenzymatic assay manufactured by [employer] and performed on the Paybook DxI 800. Values obtained with different assay methods or kits may be different and cannot be used interchangeably. Test results cannot be interpreted as absolute evidence for the presence or absence of malignant disease. Test Performed by: [facility] - [facility] [address] [place] [address] 27 Consistent with previous results on 04/04/17. 28 >100 to <200 pg/mL: likely compensated congestive heart failure (CHF) 200 to 400 pg/mL: likely moderate CHF >400 pg/mL: likely moderate to severe CHF 29 Consistent with previous results on 03/07/17. 30 Please note: The following may produce a false positive D Dimer test: - Rheumatoid factor greater than 60 IU/ml - Plasma hemoglobin greater than 0.05 gm/dl - Bilirubin greater than 50 mg/dl - Lipids greater than 1000 mg/dl - FDP greater than 20 ug/ml 31 Because ethnic data is not always readily available, this report includes an eGFR for both -Americans and non- Americans. The National Kidney Disease Education Program (NKDEP) does not endorse the use of the MDRD equation for patients that are not between the ages of 18 and 70, are , have extremes of body size, muscle mass, or nutritional status, or are non- or non-. According to the National Kidney Foundation, irrespective of diagnosis, the stage of the disease is based on the level of kidney function: Stage Description GFR(mL/min/1.73 m(2)) 1 Kidney damage with normal or decreased GFR 90 2 Kidney damage with mild decrease in GFR 60-89 3 Moderate decrease in GFR 30-59 4 Severe decrease in GFR 15-29 5 Kidney failure <15 (or dialysis) 32 Because ethnic data is not always readily available, this report includes an eGFR for both -Americans and non- Americans. The National Kidney Disease Education Program (NKDEP) does not endorse the use of the MDRD equation for patients that are not between the ages of 18 and 70, are , have extremes of body size, muscle mass, or nutritional status, or are non- or non-. According to the National Kidney Foundation, irrespective of diagnosis, the stage of the disease is based on the level of kidney function: Stage Description GFR(mL/min/1.73 m(2)) 1 Kidney damage with normal or decreased GFR 90 2 Kidney damage with mild decrease in GFR 60-89 3 Moderate decrease in GFR 30-59 4 Severe decrease in GFR 15-29 5 Kidney failure <15 (or dialysis) 33 Consistent with previous results on 01/10/17. 34 ADDITIONAL INFORMATION The testing method is an immunoenzymatic assay manufactured by [employer] and performed on the Paybook DxI 800. Values obtained with different assay methods or kits may be different and cannot be used interchangeably. Test results cannot be interpreted as absolute evidence for the presence or absence of malignant disease. Test Performed by: [address] [address] 35 Because ethnic data is not always readily available, this report includes an eGFR for both -Americans and non- Americans. The National Kidney Disease Education Program (NKDEP) does not endorse the use of the MDRD equation for patients that are not between the ages of 18 and 70, are , have extremes of body size, muscle mass, or nutritional status, or are non- or non-. According to the National Kidney Foundation, irrespective of diagnosis, the stage of the disease is based on the level of kidney function: Stage Description GFR(mL/min/1.73 m(2)) 1 Kidney damage with normal or decreased GFR 90 2 Kidney damage with mild decrease in GFR 60-89 3 Moderate decrease in GFR 30-59 4 Severe decrease in GFR 15-29 5 Kidney failure <15 (or dialysis) 36 SEE RESULT BELOW Name: MAY VELÁZQUEZ Rox : [address]: Joshua Wiseman DO Acct: [id number] Unit: [id number] AGE: 61 Location: ED Re12/17/16 SEX: F Status: DEP ER SPEC: [id number] MELINDA: 12/17/16-[address]: Joshua Wiseman DO REQ: [id number] RECD: 12/17/16 STATUS: ORQUIDEA ARCHER DR: Jesse Ndiaye MD _ SOURCE: BLOOD,VENO [facility]: ORDERED: Blood Cult Procedure Result Reported Site Aerobic Culture Bottle Final 12/22/16- 2042 ML No Growth Day 5 Anaerobic Culture Bottle Final 12/22/162042 ML No Growth Day 5 * ML - MAIN LAB ([facility]) . END OF REPORT * ML=Testing performed at Main Lab DEPARTMENT OF PATHOLOGY, [address] [place] [address] Denzel Villatoro M.D. Director [facility] # [id number] 37 [facility] Severe Sepsis and Septic Shock Management Bundle Measure requires all lactic acids initially measuring >2.0 mmol/L be repeated. 38 [facility] Severe Sepsis and Septic Shock Management Bundle Measure requires all lactic acids initially measuring >2.0 mmol/L be repeated. 39 >100 to <200 pg/mL: likely compensated congestive heart failure (CHF) 200 to 400 pg/mL: likely moderate CHF >400 pg/mL: likely moderate to severe CHF 40 Because ethnic data is not always readily available, this report includes an eGFR for both -Americans and non- Americans. The National Kidney Disease Education Program (NKDEP) does not endorse the use of the MDRD equation for patients that are not between the ages of 18 and 70, are , have extremes of body size, muscle mass, or nutritional status, or are non- or non-. According to the National Kidney Foundation, irrespective of diagnosis, the stage of the disease is based on the level of kidney function: Stage Description GFR(mL/min/1.73 m(2)) 1 Kidney damage with normal or decreased GFR 90 2 Kidney damage with mild decrease in GFR 60-89 3 Moderate decrease in GFR 30-59 4 Severe decrease in GFR 15-29 5 Kidney failure <15 (or dialysis) 41 Acute inflammation: >10.00 42 Verbal to [id number] by [id number] at 1926 on 11/20/16. Results read back accurately. 43 SEE RESULT BELOW Name: MAY VELÁZQUEZ : [address]: Shae Thacker MD Acct: [id number] Unit: [id number] AGE: 60 Location: [facility] 421- Re11/20/16 Dis: 11/23/16 SEX: F Status: DIS IN SPEC: [id number] MELINDA: 11/21/16 [facility] DR: Joshua Wiseman DO REQ: [id number] RECD: 11/21/16 STATUS: ORQUIDEA ARCHER DR: Jesse Ndiaye MD _ SOURCE: BLOOD,VENO SPDES: ORDERED: Blood Cult Procedure Result Reported Site Aerobic Culture Bottle Final 11/26/16- 10 ML No Growth Day 5 Anaerobic Culture Bottle Final 11/26/1610 ML No Growth Day 5 * ML - MAIN LAB ([facility]) . END OF REPORT * ML=Testing performed at Main Lab DEPARTMENT OF PATHOLOGY, [address] [place] [address] Denzel Villatoro M.D. Director [facility] # [id number] 44 ADDITIONAL INFORMATION The testing method is an immunoenzymatic assay manufactured by [employer] and performed on the [employer] DxI 800. Values obtained with different assay methods or kits may be different and cannot be used interchangeably. Test results cannot be interpreted as absolute evidence for the presence or absence of malignant disease. Test Performed by: [address] [address] 45 Because ethnic data is not always readily available, this report includes an eGFR for both -Americans and non- Americans. The National Kidney Disease Education Program (NKDEP) does not endorse the use of the MDRD equation for patients that are not between the ages of 18 and 70, are , have extremes of body size, muscle mass, or nutritional status, or are non- or non-. According to the National Kidney Foundation, irrespective of diagnosis, the stage of the disease is based on the level of kidney function: Stage Description GFR(mL/min/1.73 m(2)) 1 Kidney damage with normal or decreased GFR 90 2 Kidney damage with mild decrease in GFR 60-89 3 Moderate decrease in GFR 30-59 4 Severe decrease in GFR 15-29 5 Kidney failure <15 (or dialysis) 46 Consistent with previous results on 09/13/16. 47 Consistent with previous results on 08/15/16. 48 Pancytopenia. Reviewed by Wendy Virgen MD 49 Because ethnic data is not always readily available, this report includes an eGFR for both -Americans and non- Americans. The National Kidney Disease Education Program (NKDEP) does not endorse the use of the MDRD equation for patients that are not between the ages of 18 and 70, are , have extremes of body size, muscle mass, or nutritional status, or are non- or non-. According to the National Kidney Foundation, irrespective of diagnosis, the stage of the disease is based on the level of kidney function: Stage Description GFR(mL/min/1.73 m(2)) 1 Kidney damage with normal or decreased GFR 90 2 Kidney damage with mild decrease in GFR 60-89 3 Moderate decrease in GFR 30-59 4 Severe decrease in GFR 15-29 5 Kidney failure <15 (or dialysis) 50 ADDITIONAL INFORMATION The testing method is an immunoenzymatic assay manufactured by [employer] and performed on the Paybook DxI 800. Values obtained with different assay methods or kits may be different and cannot be used interchangeably. Test results cannot be interpreted as absolute evidence for the presence or absence of malignant disease. Test Performed by: [facility] [place] [address] 51 Copy Result to: GREGG BROWN ([id number]) 52 Test Performed by: [facility] [place] [address] [employer] Advisor: Edi Strickland II, M.D., Ph.D. 53 ADDITIONAL INFORMATION The testing method is an immunoenzymatic assay manufactured by [employer] and performed on the Paybook DxI 800. Values obtained with different assay methods or kits may be different and cannot be used interchangeably. Test results cannot be interpreted as absolute evidence for the presence or absence of malignant disease. Test Performed by: [facility] [place] [address] [employer] Advisor: Edi Strickland II, M.D., Ph.D. 54 Because ethnic data is not always readily available, this report includes an eGFR for both -Americans and non- Americans. The National Kidney Disease Education Program (NKDEP) does not endorse the use of the MDRD equation for patients that are not between the ages of 18 and 70, are , have extremes of body size, muscle mass, or nutritional status, or are non- or non-. According to the National Kidney Foundation, irrespective of diagnosis, the stage of the disease is based on the level of kidney function: Stage Description GFR(mL/min/1.73 m(2)) 1 Kidney damage with normal or decreased GFR 90 2 Kidney damage with mild decrease in GFR 60-89 3 Moderate decrease in GFR 30-59 4 Severe decrease in GFR 15-29 5 Kidney failure <15 (or dialysis) 55 Small abnormality in gamma fraction. See Immunofixation. Test Performed by: [facility] [address] [place] [address] [employer] Advisor: Edi Strickland II, M.D., Ph.D. 56 Small monoclonal IgG kappa within the gamma fraction. Suggest repeat testing in 6-12 months if clinically indicated. Test Performed by: [facility] [address] [place] [address] [employer] Advisor: Edi Strickland II, M.D., Ph.D. 57 Desirable <150 Borderline high 150-199 High 200-499 Very High >500 58 Desirable <200 Borderline high 200-239 High >239 59 Low <40 Desirable: 40-60 High: >60 60 Desirable: <100 mg/dL Near Optimal: 100-129 mg/dL Borderline High: 130-159 mg/dL High: 160-189 mg/dL Very High: >189 mg/dL 61 Because ethnic data is not always readily available, this report includes an eGFR for both -Americans and non- Americans. The National Kidney Disease Education Program (NKDEP) does not endorse the use of the MDRD equation for patients that are not between the ages of 18 and 70, are , have extremes of body size, muscle mass, or nutritional status, or are non- or non-. According to the National Kidney Foundation, irrespective of diagnosis, the stage of the disease is based on the level of kidney function: Stage Description GFR(mL/min/1.73 m(2)) 1 Kidney damage with normal or decreased GFR 90 2 Kidney damage with mild decrease in GFR 60-89 3 Moderate decrease in GFR 30-59 4 Severe decrease in GFR 15-29 5 Kidney failure <15 (or dialysis) 62 [facility] Severe Sepsis and Septic Shock Management Bundle Measure requires all lactic acids initially measuring >2.0mmol/L be repeated. 63 Because ethnic data is not always readily available, this report includes an eGFR for both -Americans and non- Americans. The National Kidney Disease Education Program (NKDEP) does not endorse the use of the MDRD equation for patients that are not between the ages of 18 and 70, are , have extremes of body size, muscle mass, or nutritional status, or are non- or non-. According to the National Kidney Foundation, irrespective of diagnosis, the stage of the disease is based on the level of kidney function: Stage Description GFR(mL/min/1.73 m(2)) 1 Kidney damage with normal or decreased GFR 90 2 Kidney damage with mild decrease in GFR 60-89 3 Moderate decrease in GFR 30-59 4 Severe decrease in GFR 15-29 5 Kidney failure <15 (or dialysis) 64 [MG] affected by ICTERUS 65 Reference Range and Interpretation: TnI (ng/mL) Interpretation Less Than 0.03 ng/mL Not supportive of diagnosis of [place] 0.03 - 0.50 ng/mL Indeterminate: suggest serial studies if clinically indicated. Greater than 0.5 ng/mL Consistent with diagnosis of [place] 66 SEE RESULT BELOW Name: MAY VELÁZQUEZ : [address]: Nacho Rodney MD Acct: [id number] Unit: [id number] AGE: 59 Location: ENDO Re02/15/15 SEX: F Status: REG REF SPEC: [id number] MELINDA: 02/15/15-[address]: Nacho Rodney MD REQ: [id number] RECD: 02/15/157452 STATUS: MATTHEW ARCHER DR: Jesse Ndiaye MD _ ORDERED: LEVEL IV FINAL DIAGNOSIS Colon, 30 cm, biopsy: -- Tubular adenoma. -- No high grade dysplasia or malignancy. CLINICAL HISTORY Screening colonoscopy POST-OPERATIVE DIAGNOSIS Screening colonoscopy to cecum. Polyp at 30 cm.biopsied. Ten years. GROSS DESCRIPTION The specimen is received in formalin labeled, Biopsy Colon Polyp at 30 cm, and consists of a 0.7 x 0.2 x 0.1 cm soria irregular soft tissue fragment, which is submitted entirely in one cassette. Signed (signature on file) Denzel Villatoro MD 1117 END OF REPORT * ML=Testing performed at Main Lab DEPARTMENT OF PATHOLOGY, [address] [place] [address] Denzel Villatoro M.D. Director [facility] # [id number] 67 PT IS FASTING 68 Desirable <150 Borderline high 150-199 High 200-499 Very High >500 69 Desirable <200 Borderline high 200-239 High >239 70 Low <40 Desirable: 40-60 High: >60 71 Desirable: <100 mg/dL Near Optimal: 100-129 mg/dL Borderline High: 130-159 mg/dL High: 160-189 mg/dL Very High: >189 mg/dL 72 PT IS FASTING 73 Desirable <150 Borderline high 150-199 High 200-499 Very High >500 74 Desirable <200 Borderline high 200-239 High >239 75 Low <40 Desirable: 40-60 High: >60 76 Desirable <100 Near Optimal 100-129 Borderline high 130-159 High 160-189 Very High >189 77 Therapeutic target for the treatment of diabetes Mellitus patients is <7% HBA1C, and in selective patients <6.0%.Please refer to [place] [employer] Diabetic care guidelines for further information. 78 Potassium reference range changed effective 03/29/14 79 Because ethnic data is not always readily available, this report includes an eGFR for both -Americans and non- Americans. The National Kidney Disease Education Program (NKDEP) does not endorse the use of the MDRD equation for patients that are not between the ages of 18 and 70, are , have extremes of body size, muscle mass, or nutritional status, or are non- or non-. According to the National Kidney Foundation, irrespective of diagnosis, the stage of the disease is based on the level of kidney function: Stage Description GFR(mL/min/1.73 m(2)) 1 Kidney damage with normal or decreased GFR 90 2 Kidney damage with mild decrease in GFR 60-89 3 Moderate decrease in GFR 30-59 4 Severe decrease in GFR 15-29 5 Kidney failure <15 (or dialysis) 80 Desirable <200 Borderline high 200-239 High >239 81 Desirable <100 Near Optimal 100-129 Borderline high 130-159 High 160-189 Very High >189 82 Low <40 Desirable: 40-60 High: >60 83 FASTING 84 Anion gap measurement may be of limited value in the presence of any alkalosis, especially in a combined acid base disorder. . 85 Note change in reference range as of 01/16/08. The change was based on recommendations from the [place] [employer]. 86 Please note change in reference range effective 07 . 87 CHOLESTEROL INTERPRETATION: Desirable: Less than 200 MG/DL Borderline-High Risk: 200-239 MG/DL High-Risk: 240 MG/DL and over 88 HDL INTERPRETATION: Undesirable: High Risk: Less than 40 MG/DL Desirable: Low Risk: Greater than 60 MG/DL 89 LDL INTERPRETATION: Low Risk Optimal Level: LDL Less than 100 MG/DL Near or Above Optimal: LDL 100-129 MG/DL Borderline High Risk: LDL 130-159 MG/DL High Risk: LDL 160-189 MG/DL Very High Risk: LDL Greater than 189 MG/DL 90 Anion gap measurement may be of limited value in the presence of any alkalosis, especially in a combined acid base disorder. . 91 Note change in reference range as of 01/16/08. The change was based on recommendations from the [place] [employer]. 92 Please note change in reference range effective 07 . 93 CHOLESTEROL INTERPRETATION: Desirable: Less than 200 MG/DL Borderline-High Risk: 200-239 MG/DL High-Risk: 240 MG/DL and over 94 HDL INTERPRETATION: Undesirable: High Risk: Less than 40 MG/DL Desirable: Low Risk: Greater than 60 MG/DL 95 LDL INTERPRETATION: Low Risk Optimal Level: LDL Less than 100 MG/DL Near or Above Optimal: LDL 100-129 MG/DL Borderline High Risk: LDL 130-159 MG/DL High Risk: LDL 160-189 MG/DL Very High Risk: LDL Greater than 189 MG/DL 96 Test Performed by: [facility] Dpt of Lab Med and Pathology [address] [place], [place] [id number] [employer] Advisor: Brayan Michael III, M.D. Procedures Date CPT Code Description Status 12/03/2017 17010 Insertion Of Indwelling Tunneled Pleural Catheter Completed W/Cuff 10/23/2017 00716 Thoracentesis Needle/Catheter Aspiration W/ Img Completed Guidance 06/05/2017 70593 Thoracentesis Needle/Catheter Aspiration W/ Img Completed Guidance 12/14/2016 Mammogram Completed 08/08/2016 32322 Fluoroscopic Guidance For Cent Completed 08/08/2016 30388 Insertion Tunneled Cent Venous Cathr W Subcut Port 5 Completed Yrs Or Oldr 10/04/2015 21326 Stress Test Completed 10/01/2015 Diabetic Foot Exam Completed 09/03/2015 37556 Holter Monitor Review (24 hr)dr dylon & interp only Completed 08/31/2015 30505 EEG Recording Awake & Drowsy Completed 02/15/2015 Colonoscopy Completed 10/07/2014 Mammogram Completed 10/06/2009 Mammogram Completed Encounters Type Date Location Provider CPT E/M Dx Office Visit 11/30/2017 [facility], 24111 C25.9 11:15a Pamela Stallworth J91.0 Office Visit 11/04/2017 8:35a [facility] Becky Erickson, 53177 J90 Hospitalists C78.89 I26.99 Office Visit 02/19/2017 10:50a [facility] Internal Jesse Ndiaye, 20637 Z00.01 Medicine - [place] Stallworth,FACP C25.9 I10 Office Visit 12/04/2016 10:10a [facility] Internal Medicine Jesse Ndiaye, 13390 J18.9 - [place] Alonzo Stallworth,FACP C25.9 I10 Office Visit 11/20/2016 2:07p [facility], Abbe Barton M.D. 29478 J18.9 Hospitalists C25.9 Office Visit 08/11/2016 4:00p [facility] Internal Medicine Jesse Ndiaye, 35994 C25.9 - [place] Al[place]zo Stallworth,FACP M54.5 Office Visit 08/07/2016 11:30a [facility] [place], [address] C25.9 [facility] FACS Office Visit 07/11/2016 1:40p [facility] Internal Medicine Jesse Ndiaye, 33020 D48.7 - Giovanna Stallworth,FACP D48.0 Office Visit 06/30/2016 3:40p [facility] Internal Medicine Jesse Ndiaye, 20184 D48.0 - [place] Al[place] Stallworth,FACP M54.5 Office Visit 06/14/2016 8:30a [facility] Internal Jesse Ndiaye, 83702 M48.06 Medicine - [place] Al[place] Stallworth,FACP Office Visit 06/07/2016 2:20p [facility] Jesse Ndiaye, 97928 M54.42 Medicine - [place] Alonzo Stallworth,FACP Office Visit 10/13/2015 10:00a [facility] Internal Lorenzo Manning, [employer] 77451 M20.12 Medicine - [place] [address] E78.2 R73.01 J30.9 Z01.818 Office Visit 06/14/2015 3:40p [facility] Internal Medicine Jesse Ndiaye, 72115 R55 - [place] Alonzo Stallworth,FACP Office Visit 03/19/2015 4:20p [facility] Internal Medicine Jesse Ndiaye, 52209 E78.2 - [place] Alon[place] Stallworth,FACP F17.210 I10 Office Visit 03/19/2015 3:40p [facility] Internal Jesse Ndiaye, 96220 M25.532 Medicine - [place] Alonzo Stallworth,FACP Office Visit 01/01/2015 4:00p [facility] Internal Jesse Ndiaye, 95693 272.2 Medicine - [place] Alon[place] Stallworth,FACP 305.1 790.21 401.1 Office Visit 10/01/2014 3:00p [facility] Internal Medicine [facility], 40889 V70.0 - [place] Alon[place] Stallworth,FACP 272.2 305.1 V76.19 796.2 V76.51 Office Visit 04/01/2014 4:40p [facility] [address] 790.21 - Giovanna Stallworth,FACP 272.2 305.1 V76.19 Office Visit 04/01/2010 2:40p DO Not Use Event [facility] AT [facility], 70018 272.2 Deisy Stallworth,FACP 305.1 627.2 Office Visit 06/10/2008 3:40p DO Not Use [facility] AT [facility], 80033 305.1 Deisy Stallworth,FACP 790.21 Office Visit 02/25/2008 4:00p DO Not Use [facility] AT [facility], 09446 466.0 Deisy Stallworth,FACP 305.1 272.2 790.21 Office Visit 06/04/2007 10:40a DO Not Use [facility] AT [facility], 60472 722.93 Deisy Stallworth,FACP 729.2 Office Visit 05/23/2007 1:00p DO Not Use Event [facility] AT [facility], 37617 720.2 Deisy Stallworth,FACP Office Visit 10/08/2006 2:30p [facility] Silvano Reyes, 71159 721.3 Of Pamela Stallworth Plan of Care 12/28/2017 - Perez Madden M.D.J91.0 Malignant pleural effusionFollow up:As needed
--- NOTE | 2018-01-10 18:51 | ED ---
Shortness of Breath - HPI Summary HPI Summary: This is scribe David Donahue documenting for attending Paul Alston MD. This patient is a 62 year old F presenting to [facility] with a chief complaint of intermittent SOB since 3 weeks ago. Patient reports productive cough and SOB. Patient denies fever, chills, CP, nausea, and vomiting. Patient is in chemotherapy for pancreatic cancer. She has a Port-a-cath in her L chest and a chest tube on her R side. I, Dr. Alston, personally performed the services described in this documentation as scribed in my presence, and it is both accurate and complete. - History of Current Complaint Chief Complaint: EDShortnessOfBreath Time Seen by Provider: 01/10/18 18:24 Hx Obtained From: Patient Onset/Duration: Sudden Onset, Lasting Weeks - 3 weeks ago Associated Signs & Symptoms: Cough (Productive), Chest Pain w/Cough - Denies CP , Chest Pain Unrelated to Cough - Denies CP, Fever - Denies fever, Chills - Denies chills - Allergy/Home Medications Allergies/Adverse Reactions: Allergies Allergy/AdvReac Type Severity Reaction Status Date / Time No Known Allergies Allergy Verified 10/18/17 10:50 Home Medications: Home Medications Enoxaparin(*) [Lovenox(*)] 90 mg SUBCUT Q12HR 01/10/18 [History Confirmed ] Loperamide HCl [Imodium A-D] 2 mg PO DAILY PRN 01/10/18 [History Confirmed 01/10] Ondansetron TAB* [Zofran 4 MG Tab*] 4 mg PO Q6H PRN 01/10/18 [History Confirmed 01/10/18] Scopolamine 1.5 mg* PATCH* [Transderm-Scop 1.5 mg Patch*] 1 patch TRANSDERM Q72H PRN 01/10/18 [History Confirmed 01/10/18] PMH/Surg Hx/FS Hx/Imm Hx Endocrine/Hematology History: Denies: Hx Diabetes, Hx Thyroid Disease Cardiovascular History: Reports: Hx Hypertension, Other Cardiovascular Problems/ Disorders - PRAVASTATIN Denies: Hx Pacemaker/ICD Respiratory History: Reports: Hx Lung Cancer - metastatic from pancreas , Hx Pleural Effusion, Hx Pulmonary Edema, Hx Pulmonary Embolism, Other Respiratory Problems/Disorders - PLERAL EFFUSIONS Denies: Hx Asthma, Hx Chronic Obstructive Pulmonary Disease (COPD) GI History: Denies: Hx Ulcer History: Denies: Hx Dialysis, Hx Renal Disease Musculoskeletal History: Reports: Hx Arthritis - LOWER LUMBAR AND RIGHT KNEE, LEFT WRIST Sensory History: Denies: Hx Contacts or Glasses, Hx Legally Blind, Hx Deafness, Hx Hearing Aid Opthamlomology History: Denies: Hx Contacts or Glasses, Hx Legally Blind Neurological History: Reports: Other Neuro Impairments/Disorders - PAIN CLINIC INJECTIONS Psychiatric History: Denies: Hx Panic Disorder - Cancer History Cancer Type, Location and Year: pancreatic dx 06/2016, metastatic to lung Hx Chemotherapy: Yes - PORT ON THE LEFT Hx Radiation Therapy: No - Surgical History Surgery Procedure, Year, and Place: Left foot bunionectomy 2016 Hx Anesthesia Reactions: No Infectious Disease History: Yes Infectious Disease History: Denies: Hx Hepatitis, Hx Human Immunodeficiency Virus (HIV), History Other Infectious Disease, Traveled Outside the [place] in Last 30 Days - Family History Known Family History: Positive: Hypertension, Other - daughter - herniated disc - Social History Alcohol Use: None Hx Substance Use: No Substance Use Type: Reports: None Substance Use Comment - Amount & Last Used: last smoked today before "seizure" Hx Tobacco Use: No Smoking Status (MU): Former Smoker Type: Cigarettes Amount Used/How Often: 1 PACK PER WEEK Length of Time of Smoking/Using Tobacco: 44 years Have You Smoked in the Last Year: Yes Review of Systems Negative: Fever, Chills Negative: Chest Pain Positive: Shortness Of Breath - intermittant since 3 weeks ago, Cough - productive Negative: Vomiting, Nausea All Other Systems Reviewed And Are Negative: Yes Physical Exam - Summary Physical Exam Summary: VITAL SIGNS: Reviewed. GENERAL: Patient is a very fragile, thin, elderly FEMALE who is lying comfortable in the stretcher. Patient is not in any acute respiratory distress. HEAD AND FACE: No signs of trauma. No ecchymosis, hematomas or skull depressions. No sinus tenderness. EYES: PERRLA, EOMI x 2, No injected conjunctiva, no nystagmus. EARS: Hearing grossly intact. Ear canals and tympanic membranes are within normal limits. MOUTH: Oropharynx within normal limits. NECK: Supple, trachea is midline, no adenopathy, no JVD, no carotid bruit, no c- spine tenderness, neck with full ROM. CHEST: Has Port in left side of chest for chemotherapy. Chest tube in R side LUNGS: Ronchi in both lungs and some crackles in both vessels of lungs. CVS: Regular rate and rhythm, S1 and S2 present, no murmurs or gallops appreciated. ABDOMEN: Soft, non-tender. No signs of distention. No rebound no guarding, and no masses palpated. Bowel sounds are normal. EXTREMITIES: FROM in all major joints, no edema, no cyanosis or clubbing. NEURO: Alert and oriented x 3. No acute neurological deficits. Speech is normal and follows commands. She is able to speak full sentences. SKIN: Dry and warm Triage Information Reviewed: Yes Vital Signs On Initial Exam: Initial Vitals Temp Pulse Resp BP Pulse Ox 99 F 110 24 133/81 98 01/10/18 18:09 01/10/18 18:09 01/10/18 18:09 01/10/18 18:09 01/10/18 18:09 Vital Signs Reviewed: Yes Diagnostics - Vital Signs Vital Signs Temp Pulse Resp BP Pulse Ox 01/10/18 18:13 23 01/10/18 18:09 99 F 110 24 133/81 98 - Laboratory Result Diagrams: 01/10/18 18:57 01/10/18 18:58 Lab Statement: Any lab studies that have been ordered have been reviewed, and results considered in the medical decision making process. - Radiology Chest X-Ray Radiology Interpretation Completed By: Radiologist - PROGRESSIVE RIGHT BASILAR AIRSPACE DISEASE. BILATERAL PLEURAL EFFUSIONS AND INCREASED. LEFT SUPRAHILAR MASS. ED Physician has reviewed this report. - EKG No standard instances Cardiac Rate: NL - 96 BPM EKG Rhythm: Sinus Rhythm EKG Interpretation: 18:33. No ST elevation. Similar to 11/23/2017. Course/Dx - Course Assessment/Plan: This patient is a 62 year old F presenting to [facility] with a chief complaint of intermittent SOB since 3 weeks ago. Patient reports productive cough and SOB. Patient denies fever, chills, CP, nausea, and vomiting. Patient is in chemotherapy for pancreatic cancer. She has a Port-a- cath in her L chest and a chest tube on her R side. Blood test results shows a what was a count of 2.7, hemoglobin of 11.5,. Chloride 98, glucose 127, and albumin of 0.6. Chest x-ray impression: Progressive right basilar airspace disease. Bilateral pleural effusions and increased left suprahilar mass. At this point the patient was given levofloxacin and Rocephin for the pneumonia. I discussed my physical exam, findings and test results with Dr. Jiménez who accepted the patient for admission. The patient is stable. - Diagnoses Differential Diagnosis/HQI/PQRI: Positive: Asthma, Bronchitis, CHF, COPD Exacerbation, Pneumonia Provider Diagnoses: Pleural effusion, Pneumonia Discharge - Sign-Out/Discharge Documenting (check all that apply): Patient Departure - Discharge Plan Condition: Stable Disposition: ADMITTED TO [facility] Referrals: Allen Grace MD [Medical Doctor] -
[2018-01-10 19:06] LABS: ABS Basophils 0 10^3/ul (0-0.2); ABS Eosinophils 0.1 10^3/ul (0-0.6); ABS Lymphocytes 0.2 10^3/ul (1.0-4.8); ABS Monocytes 0.1 10^3/ul (0-0.8); ABS Neutrophils 2.3 10^3/ul (1.5-7.7); ABS Nucleated RBC 0 10^3/ul; Eosinophil % 2.8 % (0-6); Hematocrit 35 % (35-47); Hemoglobin 11.5 g/dl (12.0-16.0); Lymphocyte % 8.7 % (25-47); Mean Corpuscular HGB Conc 33 g/dl (31-36); Mean Corpuscular Hemoglobin 28 pg (27-31); Mean Corpuscular Volume 84 fL (80-97); Nucleated Red Blood Cells % 0.1; Platelet Count 273 10^3/ul (150-450); Red Blood Count 4.14 10^6/ul (4.00-5.40); Red Cell Distribution Width 16 % (10.5-15); White Blood Count 2.7 10^3/ul (3.5-10.8)
--- NOTE | 2018-01-10 19:17 | RAD ---
INDICATION: Chest pain COMPARISON: December 03, 2017 TECHNIQUE: An AP portable view obtained at 1902 hours is submitted. FINDINGS: Bones/Soft Tissues: There are no acute bony findings. There is a left-sided Bstklv-[id number] catheter terminating the superior vena cava Cardiomediastinal: The cardiac silhouette is normal in size. Lungs: There is a left suprahilar mass. There is patchy infiltrative change in both lung bases with progression on the right. No definite pneumothorax is seen today. Pleura: There are bilateral pleural effusions. This pleural fluid appears loculated on the left and has increased. There is also increased pleural fluid in the right lung base Other: None IMPRESSION: PROGRESSIVE RIGHT BASILAR AIRSPACE DISEASE. BILATERAL PLEURAL EFFUSIONS AND INCREASED. LEFT SUPRAHILAR MASS.
[2018-01-10] MEDS ORDERED: cefTRIAXone(*) 1 GM in NS 0.9% 50 ML* 50 ML IVPB ONE (20:07)
[2018-01-10] MEDS ORDERED: Levofloxacin 750 MG IVPREMIX(* 750 MG/150 ML BAG IVPB ONE (20:07)
[2018-01-10 20:24] LABS: EGFR Non-African American 121.8 (>60)
[2018-01-10] MEDS ORDERED: Acetaminophen TAB* 325 MG PO PRN (21:43)
[2018-01-10] MEDS ORDERED: Ondansetron INJ* 2 MG/ML VIAL IV PRN (21:43)
[2018-01-10] MEDS ORDERED: NS 0.9% 1000 ML* 1,000 ML IV SCH (21:45)
[2018-01-10] MEDS ORDERED: Loperamide CAP* 2 MG PO PRN (21:48)
[2018-01-10] MEDS ORDERED: Scopolamine 1.5 mg* PATCH TRANSDERM PRN (21:48)
--- NOTE | 2018-01-10 23:31 | RAD ---
CLINICAL HISTORY: 62 years old, female; Signs and symptoms; Shortness of breath; Additional info: Dyspnea, bilateral pleural effusions TECHNIQUE: Axial computed tomography images of the chest without intravenous contrast. Coronal and sagittal reformatted images were created and reviewed. COMPARISON: January 10, [address]. CHEST WO CT CHEST W/O 2017-11-23 14:39 images reviewed however prior dictated report not available at this time FINDINGS: Lungs: There is increased interstitial opacities in the right upper lobe and right middle lobe as well as lingular base suspicious for interstitial pneumonitis or pulmonary edema. There is additional mostly dependent consolidation in the lungs which may represent dependent atelectatic change, however cannot exclude a component of pneumonitis, as previously seen. Pleural space: Stable moderate partly loculated left pleural effusion and decreased size of moderate partly loculated right pleural effusion. There is a new right-sided chest tube in the right base pleural space. No pneumothorax. Heart: Stable small pericardial effusion. Bones/joints: There appear to be new lytic lesions and to a lesser extent sclerotic lesions involving multiple thoracic spine vertebra, particularly a lytic lesion of the T7 vertebral body which were not evident on the prior CT and there is additional large lytic lesion of the L1 vertebral body is not included in the scan range on the prior CT. Suspicious for osseous metastases. Stable degenerative changes of the spine. No acute fracture. No dislocation. Soft tissues: There appears to be diffuse subcutaneous edema on the current exam. Vasculature: Stable atherosclerotic aortic calcifications. No thoracic aortic aneurysm. Lymph nodes: Unremarkable. No enlarged lymph nodes. Tubes, lines and devices: Stable left chest wall Port-A-Cath. IMPRESSION: 1. Stable moderate partly loculated left pleural effusion and decreased size of moderate partly loculated right pleural effusion. There is a new right-sided chest tube in the right base pleural space. 2. Stable small pericardial effusion. 3. There is increased interstitial opacities in the right upper lobe and right middle lobe as well as lingular base suspicious for interstitial pneumonitis or pulmonary edema. There is additional mostly dependent consolidation in the lungs which may represent dependent atelectatic change, however cannot exclude a component of pneumonitis, as previously seen. 4. There appear to be new lytic lesions and to a lesser extent sclerotic lesions involving multiple thoracic spine vertebra, particularly a lytic lesion of the T7 vertebral body which were not evident on the prior CT and there is additional large lytic lesion of the L1 vertebral body is not included in the scan range on the prior CT. Suspicious for osseous metastases.
--- NOTE | 2018-01-11 00:09 | HP ---
HISTORY AND PHYSICAL: DATE OF ADMISSION: ADDENDUM: In review of the patient's weight and discussion with her pharmacy, it was determined that the patient's weight is currently 115 pounds, which puts her Lovenox dose at 52 mg, which rounds down to 50 mg of Lovenox subcu q.12 hours based on a weight- based algorithm for anticoagulation. Dose for Lovenox has been changed from 90 mg subcu q.12 hours to 50 mg subcu q.12 hours. SHERYL WILKINS, BORING AND FILLING MACHINE OPERATOR [id number]/CPS #: [id number] KALINA
--- NOTE | 2018-01-11 01:06 | HP ---
CC: Dr. Gregg Brown; Dr. Jesse Ndiaye* MEDICINE HISTORY AND PHYSICAL: DATE OF ADMISSION: 01/10/18 PROVIDER: Sheryl Wilkins NP. ATTENDING PHYSICIAN: Dr. Amirah Jiménez* (dictated by Sheryl Wilkins NP). PRIMARY CARE PROVIDER: Dr. Jesse Ndiaye. PRIMARY ONCOLOGIST: Dr. Gregg Brown. CHIEF COMPLAINT: Shortness of breath. HISTORY OF PRESENT ILLNESS: Ms. Moses is a 62-year-old female who presents to the ER today with concern for intermittent shortness of breath that has been ongoing x3 weeks. She also endorses a productive cough. She is status post recent completion of her chemotherapy this week. She felt too weak yesterday to report to the clinic for discontinuation of her home chemotherapy infusion. Today, she had called the nursing staff and states that they told her to come in for evaluation given symptoms of weakness, cough, and dyspnea. She denies any chest pain. She denies fever or chills. She is chronically on oxygen at 3 to 4 L and is up to 5 L currently but states she feels comfortable. She denies any abdominal pain, nausea, vomiting, diarrhea. She does endorse fatigue and weakness, now exacerbated following chemotherapy, and shortness of breath that does worsen more with exertion. She also reports intermittent constipation secondary to oxycodone, but this has been improved since starting docusate and senna. Again, she does endorse a productive cough. Here in the ER, she underwent evaluation, which included a chest x-ray that shows concern for progressive right basilar airspace disease, bilateral pleural effusions, and increased left suprahilar mass. Her EKG was reviewed and shows minimal ST elevations in the anterior leads and sinus rhythm with PACs; EKG compared to previous on record and is similar in appearance. She does have a white blood cell count of 2700, as well as a procalcitonin of 0.7. Given the concern for her x-ray and her procalcitonin, she was started on Rocephin and levofloxacin with concern for pneumonia. Of note, she does have a Pleurx catheter to the right lung for malignant pleural effusion. She does have the Pleurx catheter drained on Mondays, Wednesdays, and Fridays, and she is due for a therapeutic drainage tomorrow. PAST MEDICAL HISTORY: Includes: 1. Metastatic pancreatic cancer. She has recently finished a round of chemo this week. 2. Bilateral pleural effusions. 3. Hypertension. 4. History of pulmonary embolus in March 2017, now chronically anticoagulated with Lovenox. 5. Hyperlipidemia. 6. Osteoarthritis. 7. Chronic hypoxic respiratory failure, on home oxygen 3 to 4 L nasal cannula. PAST SURGICAL HISTORY: Includes left chest wall port placement and left foot bunionectomy. HOME MEDICATIONS: 1. Lovenox 90 mg subcu q.12 hours. 2. Zofran 4 mg q.6 hours p.r.n. 3. Scopolamine 1.5 mg patch q.72 hours p.r.n. 4. Oxycodone 10 mg q.4 hours p.r.n. 5. Loperamide 2 mg daily p.r.n. ALLERGIES: No known allergies. FAMILY HISTORY: She reports her mother with a history of lung cancer and a sister with history of breast cancer. SOCIAL HISTORY: She is a former smoker with a 44-year smoking history. She quit in 2014. She denies alcohol use. She lives in [place] and has 2 supportive daughters and family members who check in on her. Her sister, Lana Estrada, is her surrogate decision maker in the event of emergency. REVIEW OF SYSTEMS: A 12-point review of systems was completed. All pertinent positives and negatives as per HPI. All others systems not mentioned are negative. PHYSICAL EXAMINATION GENERAL: This is a pleasant, alert, cachetic female, sitting up in the ED stretcher, in no acute distress. She is wearing oxygen at 5L and is able to speak in full sentences without difficulty. She is able to move herself around in bed without significant dyspnea. VITAL SIGNS: Temperature 99.0, pulse rate 104, respiratory rate 24, O2 saturation 98% on 5 L, blood pressure 104/64. HEENT: Head is atraumatic, normocephalic. Face is symmetric. Pupils are equal , round, and reactive to light. No scleral icterus noted. Extraocular movements are intact. Oral mucosa is moist. NECK: Supple. No JVD noted. No lymphadenopathy appreciated. LUNGS: Decreased throughout. There are inspiratory rhonchi noted throughout all lung [place], though more notably in the left side. There are expiratory crackles noted in the bases and right middle lobe. CHEST: There is a left chest wall port, and there is a right lateral flank dressing in place that was clean, dry, and intact with Pleurx catheter. CARDIAC: Normal S1 and S2 heart sounds with regular rate and rhythm. No murmurs appreciated. ABDOMEN: Soft, nontender, nondistended with normoactive bowel sounds. There is no guarding or rebound tenderness. There is no suprapubic tenderness. MUSCULOSKELETAL: There is no clubbing or cyanosis. She is able to actively move all extremities. SKIN: Appears grossly intact. NEUROLOGIC: Cranial nerves II through XII are grossly intact. 5/5 strength to upper and lower extremities. Sensation is intact to light touch in lower extremities. PSYCH: She is alert and oriented x3. Affect is appropriate. Responses are timely. Eye contact was good. LABORATORY DATA AND DIAGNOSTIC STUDIES: CBC: WBC 2.7, hemoglobin 11.5, hematocrit 35, platelet count 273. PTT 25.2. CMP: Sodium 135, potassium 4.5, chloride 98, carbon dioxide 30, BUN 16, creatinine 0.51, glucose 127, lactic acid 1.9, calcium 8.8, magnesium 2. AST 17, ALT 6, alk phos 100. Troponin 0.03. BNP is 95. Albumin 2.5, procalcitonin 0.7 and TSH is 1.88. Chest x-ray and EKG as per above. Old medical records were reviewed. ASSESSMENT AND PLAN: Ms. Moses is a 62-year-old female with a history of metastatic pancreatic cancer, recently finished her round of chemotherapy this week, who presents with several days of intermittent shortness of breath and productive cough. She has been found to have concern for bilateral pleural effusions with right basilar airspace disease and increased left suprahilar mass. She is admitted for further evaluation and treatment. Plan is as follows : 1. Bilateral pleural effusions: X-ray noted the left pleural effusion appears to be loculated. After reviewing the x-ray with my attending, Dr. Jiménez, she agreed that CT of the chest would be more helpful in evaluating the extent of the effusions and abnormalities seen on chest x-ray. She is due for right- sided Pleurx drainage tomorrow, which should be able to be done on the inpatient unit. She does appear to be reasonably comfortable after receiving her antibiotics and is close to her baseline oxygen level. In discussion with my attending, there is not an emergent need for thoracentesis tomorrow morning, so we will continue her on Lovenox and defer the development of plan of care to Oncology. 2. Concern for pneumonia: Again, she did receive levofloxacin and Rocephin here in the ER. She is afebrile but does have a mildly elevated procalcitonin. She is at risk for poor immune response following chemotherapy. At this time , it does appear appropriate to continue on Levaquin at this time, and we will continue to monitor response. 3. Metastatic pancreatic cancer, status post recent round of chemo. Further plan per oncology. 4. History of pulmonary embolus: She is chronically anticoagulated with Lovenox, which we will continue. 5. Hypertension. She is normotensive. She is not on antihypertensive therapies. 6. Chronic pain, secondary to malignancy: Continue home regimen of Roxicodone with bowel regimen. 7. FEN: She will receive a liter of fluid with further monitoring to determine additional fluid needs. She is ordered a heart-healthy diet. 8. DVT prophylaxis: Again, she is chronically anticoagulated with Lovenox for history of PE. 9. Code status: Family states they have not yet addressed the MOLST form but will do so in the future with oncology as things progress. She has follow up scans next week to evaluate disease progression. She is a full code. TIME SPENT: Time spent on this admission was approximately 65 minutes with more than half that time spent [id number] with the patient and family obtaining history and physical, performing the physical examination, and reviewing the plan of care. Plan of care was also reviewed with my attending, Dr. Jiménez, who was in agreement. ADDENDUM TO HISTORY AND PHYSICAL: DATE OF ADMISSION: 01/10/2018. ADDENDUM: In review of the patient's weight and discussion with her pharmacy, it was determined that the patient's weight is currently 115 pounds, which puts her Lovenox dose at 52 mg, which rounds down to 50 mg of Lovenox subcu q.12 hours based on a weight- based algorithm for anticoagulation. Dose for Lovenox has been changed from 90 mg subcu q.12 hours to 50 mg subcu q.12 hours. SHERYL WILKINS, [employer]LECT[employer]ICAL CHECKOUT MECHANIC [id number]/[facility] #: [id number]/[facility] #: [id number] KALINA
[2018-01-11] MEDS: Enoxaparin(*) 60 MG/0.6 ML SYR SUBCUT SCH ×2 (01:07→12:59)
[2018-01-11] MEDS: oxyCODONE TAB* 5 MG TAB PO PRN ×2 (01:07→05:42)
[2018-01-11] MEDS: Senna TAB PO SCH ×2 (01:08→09:15)
[2018-01-11 07:59] LABS: ABS Basophils 0 10^3/ul (0-0.2); ABS Eosinophils 0.1 10^3/ul (0-0.6); ABS Lymphocytes 0.3 10^3/ul (1.0-4.8); ABS Monocytes 0.1 10^3/ul (0-0.8); ABS Neutrophils 1.7 10^3/ul (1.5-7.7); ABS Nucleated RBC 0 10^3/ul; Eosinophil % 3.9 % (0-6); Hematocrit 28 % (35-47); Hemoglobin 9.5 g/dl (12.0-16.0); Lymphocyte % 13.6 % (25-47); Mean Corpuscular HGB Conc 34 g/dl (31-36); Mean Corpuscular Hemoglobin 28 pg (27-31); Mean Corpuscular Volume 84 fL (80-97); Mean Platelet Volume 7.9 um3 (7.4-10.4); Nucleated Red Blood Cells % 0.2; Platelet Count 218 10^3/ul (150-450); Red Blood Count 3.38 10^6/ul (4.00-5.40); Red Cell Distribution Width 16 % (10.5-15); White Blood Count 2.2 10^3/ul (3.5-10.8)
[2018-01-11 08:19] LABS: EGFR Non-African American 148.3 (>60)
[2018-01-11] MEDS ORDERED: Docusate CAP* 100 MG PO SCH (09:00)
[2018-01-11 14:46] VITALS: BP 110/64
[2018-01-11] MEDS ORDERED: Levofloxacin 750 MG IVPREMIX(* 750 MG/150 ML BAG IVPB SCH (20:00)
--- NOTE | 2018-01-12 01:39 | DS ---
CC: Dr. Jesse Ndiaye; Dr. Gregg Brown.* DISCHARGE SUMMARY: DATE OF ADMISSION: 01/10/18 DATE OF DISCHARGE: 01/11/18 PRIMARY CARE PROVIDER: Dr. Jesse Ndiaye. PRIMARY ONCOLOGIST: Dr. Gregg Brown. ATTENDING PHYSICIAN: Dr. Celso Hernandez.* (DICTATED BY BOBO FRAUSTO) DISCHARGING PROVIDER: BOBO Frausto PRIMARY DISCHARGE DIAGNOSES: 1. Pneumonia. 2. Bilateral malignant pleural effusion. 3. Metastatic pancreatic cancer. 4. History of pulmonary embolism. 5. Peripheral neuropathy. DISCHARGE MEDICATIONS: 1. Loperamide 2 mg p.o. daily as needed for diarrhea. 2. Zofran 4 mg p.o. q.6 hours as needed for nausea and vomiting. 3. Scopolamine patch 1.5 mg, apply transdermally every 72 hours as needed for nausea. 4. Lovenox 75 mg subcu daily. 5. Gabapentin 300 mg p.o. at bedtime. 6. Levaquin 750 mg p.o. daily. 7. Oxycodone 10 mg p.o. q.4 hours as needed for pain. Medication changes: 1. Start Levaquin x10 days. 2. Start gabapentin for peripheral neuropathy. 3. Decrease Lovenox dose due to weight loss. HOSPITAL IMAGIN. Chest x-ray shows progressive right basilar airspace disease and bilateral pleural effusion and increased left suprahilar mass. 2. CT chest shows stable moderate partially loculated left pleural effusion, decrease size of moderate partly loculated right pleural effusion. There are new right-sided chest tubes in the right pleural space. There is a stable small pericardial infusion and increased interstitial opacity from the right upper lobe and right middle lobe as well as lingular base suspicious for interstitial pneumonitis, or pulmonary edema. There is also additional mostly dependent consolidation in the lungs which may represent a tendon atelectatic change. It appears that there may be presence of pneumatic lesions in the thoracic spine. HOSPITAL COURSE: This is a 62-year-old female with metastatic pancreatic cancer , currently treated with FOLFOX by Dr. Brown who presented to the emergency department with weakness, increased cough, and shortness of breath that had come over the proceeding 24 hours. The patient had had her initial chemotherapy infusion and started her 46 hour infusional 5FU on 01/08/18 and was scheduled to come back to the chemotherapy suite on 01/10/18 on her 5FU pump , but she was so weak and shortness of breath, was unable to make that appointment and instead proceeded to the emergency department for evaluation. The patient was afebrile when she reached to the emergency department. No neutropenia, mild anemia, and no significant electrolyte abnormalities. Chest x -ray suggestive of bilateral pleural effusion similar to prior and she underwent CT scan of the chest which showed a right-sided infiltrate that appeared to be new from prior and the patient was subsequently started on antibiotics for a possible pneumonia. The patient reports that after her first dose of the antibiotic she noted a significant improvement in her respiratory status. The patient underwent drainage of her PleurX catheter which yielded 650 mL of pleural fluid. She had been getting drains by visiting nurse service 3 times weekly yielding between 500 and 750 mL each time. The patient remained afebrile throughout her hospitalization and her respiratory status returned to baseline after drainage of her PleurX catheter. The patient has been very motivated to continue treatment for her metastatic disease. Unfortunately, her CA99 has climbed rather steadily over the last several months and she is due for restaging scans next week. The patient's performance status has declined over the last several months and the PleurX catheter was placed for a recurrent pleural effusion. DISPOSITION: Followup Plan: The patient is being discharged to home. Recommend Levaquin x10 days as described above. Started gabapentin for increased control of her neuropathic pain. She will undergo 4 restaging scans on 01/18/18 with close followup in the Oncology office following that. Suspect that these restaging scans will demonstrate progressive disease and we will discuss hospice with the patient and her family at that time. BOBO FRAUSTO [id number]/[facility] #: [id number] [place]INA
== END 2018-01-11 15:58 | disposition home or self-care (01) | DRG 194 ==
LOC: ED 18:03 → SSU 21:43 → INTOOBSV 21:43 → UNDODISIN 01-11 15:58
PROVIDERS: ADMIT Hospitalist; ATTEND Internal Medicine Hematology & Oncology
DX: J18.9 Pneumonia, unspecified organism (principal); C25.9 Malignant neoplasm of pancreas, unspecified; C78.00 Secondary malignant neoplasm of unspecified lung; J91.0 Malignant pleural effusion; J96.11 Chronic respiratory failure with hypoxia; I10 Essential (primary) hypertension; G89.3 Neoplasm related pain (acute) (chronic); G62.9 Polyneuropathy, unspecified; M17.11 Unilateral primary osteoarthritis, right knee; M46.90 Unspecified inflammatory spondylopathy, site unspecified; K59.03 Drug induced constipation; T40.2X5A Adverse effect of other opioids, initial encounter; E78.5 Hyperlipidemia, unspecified; Z80.3 Family history of malignant neoplasm of breast; Z80.1 Family history of malignant neoplasm of trachea, bronchus and lung; Z82.49 Family history of ischemic heart disease and other diseases of the circulatory system; Z87.891 Personal history of nicotine dependence; Z86.711 Personal history of pulmonary embolism; Z79.01 Long term (current) use of anticoagulants
CPT/HCPCS: 36415; 71045; 71250; 80048; 80053; 82550; 82553; 83605; 83735; 83880; 84145; 84443; 84484; 85025; 85730; 93005; 99239; 99283; A9270-GY; G0378; J0696; J1642; J1650